=== PATIENT | male | born 1970 | race Caucasian/White ===

== ENCOUNTER → 2016-04-08 | Outpatient (CLI) | payer OTHER ==
[2016-04-08 16:18] LABS: Basophils # (A) 0.1 k/uL (0-0.2); Basophils % (A) 2 %; CHCM 35.3; Eosinophils # (A) 0.4 k/uL (0-0.7); Eosinophils % (A) 8 %; HCT 48.9 % (39.0-53.0); HDW 2.84; HGB 16.3 gm/dL (13.0-17.5); Luc # (Auto) 0.08; Luc % (Auto) 2; Lymphocytes # (A) 0.9 k/uL (1.0-4.8); Lymphocytes % (A) 20 %; MCH 30.4 pg (25.0-35.0); MCHC 33.3 g/dL (31.0-37.0); MCV 91.2 fL (80.0-100.0); Mean Platelet Volume 7.8; Monocytes # (A) 0.3 k/uL (0-1.0); Monocytes % (A) 6 %; Neutrophils # (A) 2.9 k/uL (1.3-7.7); Neutrophils % (A) 63 %; RBC 5.36 m/uL (4.30-5.90); RDW 13.8 % (11.5-15.5); WBC 4.6 k/uL (3.8-10.6); WBC (Perox) 4.68
[2016-04-08 16:39] LABS: ALT 59 U/L (21-72); AST 46 U/L (17-59); Alkaline Phosphatase 83 U/L (38-126); Anion Gap 10 mmol/L; Blood Urea Nitrogen 8 mg/dL (9-20); Calcium 9.3 mg/dL (8.4-10.2); Carbon Dioxide 23 mmol/L (22-30); Chloride 107 mmol/L (98-107); Glucose 108 mg/dL (74-99); Non-African American GFR(MDRD) >60 (>60 ml/min/1.73 sqM); Potassium 4.8 mmol/L (3.5-5.1); Sodium 140 mmol/L (137-145); Total Bilirubin 0.7 mg/dL (0.2-1.3); Total Protein 7.4 g/dL (6.3-8.2)
--- NOTE | 2016-04-08 21:46 | MR ---
EXAMINATION TYPE: MR brain/cspine wo/w DATE OF EXAM: 04/08/2016 6:03 PM COMPARISON: MRI cervical spine February 22, 2015. MRI brain September 08, 2013. HISTORY: Checking for MS progression, rt side numbness, back pain, prior neck surgery 2012, removal o f brain tumor 1991 TECHNIQUE: Multiplanar, multisequence images of the cervical spine, brain, and brainstem are all performed witho ut and with IV contrast, utilizing 20 mL intravenous MultiHance gadolinium contrast is administered i ntravenously. Demyelinating disease protocol with additional Sagittal Flair sequence performed of th e brain and brainstem and PD sagittal sequence of cervical spine acquired. FINDINGS: BRAIN: T2 Lesions Present : Yes Approximate Number of Lesions: Difficult to accurately count due to background changes related to domingo or surgery and old infarcts. Some scattered small brainstem lesions remain present. Size of Reference Lesion(s): A vague area T2 hyperintensity along right temporal occipital horn on ax ial images 15 through 17 is noted. Enhancing Lesion(s) Present: No Change from Prior: Stable Diffusion weighted images demonstrate no evidence of a recent infarct or other diffusion abnormality. There is no worrisome extra-axial fluid collection. There is persistent mild diffuse hydrocephalus with ventricular size grossly unchanged from prior MRI. No significant sulcal effacement is seen. Per iventricular T2 hyperintensities along the occipital horns bilaterally are redemonstrated with additi onal area of old infarct more posterior right occipital lobe again seen. There is area of hyperintens ity right frontal lobe likely related to prior shunt catheter course. There is encephalomalacia invol ving the cerebellum redemonstrated slightly more prominent on the left side unchanged from prior exam . Symmetric areas of CSF prominence along the medial temporal lobes is unchanged from prior studies n ear axial image 10. Midline structures demonstrate normal morphology. The craniocervical junction appears within normal limits. Post contrast images demonstrate no new areas of abnormal enhancement. Area of enhancement i n inferior fourth ventricle is felt to reflect prominent vessel seen best on axial image 6 posterior to medulla and is stable. The dural venous sinuses appear patent. A mucous retention cyst or polyp in the anterior right maxillary sinus is redemonstrated. Minimal mucosal thickening in both maxillary s inus is redemonstrated. Remainder of the paranasal sinuses are clear. The globes are intact bilateral ly. IMPRESSION: Postsurgical change from midline occipital craniectomy with cerebellar encephalomalacia r edemonstrated. There is background mild diffuse hydrocephalus with scattered areas of encephalomalaci a redemonstrated. No significant change from prior MRI is seen. Some additional scattered nonspecific white matter changes are present. No new enhancing mass is noted. C-SPINE: FINDINGS: Sagittal images of the cervical spine show the craniocervical junction to remain within nor mal limits. The cervical and upper thoracic spinal cord redemonstrates some vague T2 hyperintense si gnal with suggestion of mild atrophy C5-C6 level at level of prior surgery suspicious for myelomalaci a without significant change. Vertebral alignment is anatomic. Artifact from anterior fusion hardwar e C5-C6 level is redemonstrated. The vertebral body and intravertebral disk heights are normal above and below level of surgery. Small posterior disc herniations are felt present C3-C4, C4-C5, and C6-C 7 levels on sagittal images unchanged from prior study. The bone marrow signal intensity is within no rmal limits above and below level of surgery. No suspicious postcontrast enhancement is present. Axial images at the C2-C3 level redemonstrate possible subtle anterolisthesis felt stable otherwise a re unremarkable. Axial images at C3-C4 level show broad-based posterior disc protrusion effacing anterior thecal sac w ith uncovertebral facet degenerative changes bilaterally causing mild to moderate right greater than left neural foraminal narrowing. No significant change from prior study is seen. Axial images at C4-C5 level show some uncovertebral facet degenerative changes bilaterally. There is broad-based central disc protrusion mildly effacing anterior thecal sac. There is moderate bilateral neural foraminal narrowing at this level redemonstrated. No significant change from prior study is se en. Axial images at C5-C6 level show artifact from surgical hardware. Increased signal right spinal cord remains present and is stable. Spinal canal is preserved. Uncovertebral facet degenerative changes ca uses mild bilateral neural foraminal narrowing, left slightly more pronounced than right, no signific ant change from prior study is seen. Axial images at C6-C7 level show broad based left paracentral disc protrusion effacing anterior theca l sac with mild bilateral neural foraminal narrowing. No significant change from prior study is ident ified. Axial images at C7-T1 level are felt within normal limits. IMPRESSION: Postsurgical changes C5-C6 level with small area of abnormal spinal cord signal favoring myelomalacia redemonstrated. Additional multilevel degenerative changes are seen as detailed above wi thout significant change from prior MRI. No new or enhancing spinal cord lesions are identified.
--- NOTE | 2016-04-09 08:10 | US ---
EXAMINATION TYPE: US carotid duplex BILAT DATE OF EXAM: 04/08/2016 7:26 PM COMPARISON: Previous carotid Doppler 08 September 2013 CLINICAL HISTORY: Right facial numbness x 1 month ago, MS, high BP. EXAM MEASUREMENTS: RIGHT: Peak Systolic Velocity (PSV) cm/sec ----- Right CCA: 79.0 ----- Right ICA: 50.5 ----- Right ECA: 47.6 ICA/CCA ratio: 0.6 RIGHT: End Diastole cm/sec ----- Right CCA: 24.1 ----- Right ICA: 28.4 ----- Right ECA: 9.2 LEFT: Peak Systolic Velocity (PSV) cm/sec ----- Left CCA: 82.7 ----- Left ICA: 64.5 ----- Left ECA: 71.3 ICA/CCA ratio: 0.8 LEFT: End Diastole cm/sec ----- Left CCA: 32.2 ----- Left ICA: 32.2 ----- Left ECA: 17.5 VERTEBRALS (direction of flow): Right Vertebral: Antegrade Left Vertebral: Antegrade Bilateral wall thickening. No significant stenosis or high velocities seen. No plaque. IMPRESSION: No hemodynamic significant stenosis of the proximal internal carotid arteries bilaterall y by Doppler criteria, and indirect measurement of carotid stenosis
== END | disposition home or self-care (01) ==
LOC: RADMRIMAIN 15:40
PROVIDERS: ATTEND Psychiatry & Neurology Neurology
DX: G35 Multiple sclerosis (principal); G91.9 Hydrocephalus, unspecified; G93.89 Other specified disorders of brain; M47.812 Spondylosis without myelopathy or radiculopathy, cervical region; R20.8 Other disturbances of skin sensation; Z98.890 Other specified postprocedural states
CPT/HCPCS: 80053; 85025; 93880; 70553; 72156; A9577

== ENCOUNTER → 2017-01-05 | Outpatient (CLI) | payer MEDICARE, OTHER ==
--- NOTE | 2017-01-05 16:42 | CONS ---
CONSULTATION This is a consultation note for sleep apnea. Campbell is 46, diagnosed having sleep apnea a few years back through a sleep center in [place], [place] under the care of Dr. Sorensen who is associated also with [facility]. He was diagnosed having moderate to severe JASON with an AHI of 26, and currently is on CPAP pressure of 9 cm of water. He has not been to his sleep doctor and wants to establish himself at our Sleep Center and try to get his CPAP supplies renewed. He used to work with [employer]. He is currently disabled due to multiple sclerosis and he also has hypertension and chronic anxiety disorder. He claims that he has been wearing a CPAP every night without any interruption and the patient denies snoring while on CPAP therapy and he denies any apneic episodes or any episodes of waking up with choking or gasping for air. He goes to bed around 10:00 pm, wakes up 7:00 am in the morning and he claims that his treatment is successful and is using a nose mask. Based on description I think he is using a Mirage FX nose mask. I did not see his machine nor did I see any of the CPAP supplies with him today. He claims that all of his equipment is at home. His current [place] score is at 2. No recent weight gain over the past year. No nocturnal heartburn. No palpitations. No chest pain. No shortness of breath. No nocturnal restlessness in lower extremities. PAST MEDICAL HISTORY: Obstructive sleep apnea, multiple sclerosis, hypertension and anxiety. PAST SURGICAL HISTORY: Includes resection of a brain tumor with placement of ADVERTISING ASSISTANT shunt. Two hernia repairs. Two knee surgeries and cervical neck fusion. DRUG ALLERGIES: SULFA AND CODEINE. OUTPATIENT MEDICATION LIST: Includes BuSpar, Cozaar, doxepin, Norvasc, Trintellix, SOCIAL HISTORY: The patient is a nonsmoker. No history of alcohol. No history of IV drugs. 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 Currently disabled. FAMILY HISTORY: Positive for CAD in several family members. Negative for JASON. REVIEW OF SYSTEMS: 12-point review of system was done. CONSTITUTIONAL: Fatigue, tiredness and some degree of sleepiness. HEENT: Negative for runny eyes or nose or postnasal drainage. CARDIOVASCULAR: Negative for angina or palpitations. PULMONARY: Negative for any cough, sputum production, or chest tightness or wheezing. GI: Negative for nausea, vomiting, abdominal pain, or GI bleed. NEURO: Positive for multiple sclerosis and difficult mobility and gait. MUSCULOSKELETAL: Chronic pain related to arthritic pain in his knees and neck and back. SKIN: Negative for wounds or ulcers. PSYCH: Positive for chronic anxiety maintained on BuSpar. : Negative for dysuria, frequency, urgency. PHYSICAL EXAMINATION: BP is 133/88. Pulse 82, respirations 18, temperature 98.2, saturation 97% on room air. Weight is 331.6. Height is 6 foot 4. [place] score is a 2. BMI is 40.4, neck sizes 18- 3/4. GENERAL APPEARANCE: Calm, comfortable, in no acute distress. HEENT: Chronic posterior pharynx. No goiter or neck masses. Mallampati class IV. LUNGS: Clear to auscultation. HEART: Sounds are regular. Normal S1, S2. No S3, S4. No murmurs. ABDOMEN: Soft, nontender. No organomegaly. EXTREMITIES: No edema. No cyanosis or clubbing. SKIN: Negative for wounds or ulcers. NEURO: Negative for any change in mental status. He has a chronic difficulty with mobility and gait. Normal speech for now. IMPRESSION: 1. Obstructive sleep apnea. No available documentation on his previous disease status. He claims that he has moderately severe disease with an AHI of 26, with a CPAP pressure of 9 cm of water and is requesting supplies. 2. Multiple sclerosis. 3. Hypertension. 4. Anxiety. PLAN: 1. Will obtain a CT information to his sleep doctor and get all the information and documentation that established the sleep apnea and information on the treatment that was offered. 2. Encourage weight loss. 3. Gave the patient a dream wear nose mask and samples will be given to him today and he will be using it at home until he gets mailed information and after that I will arrange his supplies to be given through a local DME. 4. Optimize sleep hygiene measures. 5. We will continue to follow. MMODL / IJN: [id number] /
== END ==
LOC: SLEEP 13:18
PROVIDERS: ATTEND Internal Medicine Critical Care Medicine
DX: G47.33 Obstructive sleep apnea (adult) (pediatric) (principal); I10 Essential (primary) hypertension; G35 Multiple sclerosis; F41.9 Anxiety disorder, unspecified; Z79.899 Other long term (current) drug therapy; Z88.2 Allergy status to sulfonamides; Z88.5 Allergy status to narcotic agent
CPT/HCPCS: 99211

== ENCOUNTER → 2017-03-30 | Outpatient (CLI) | payer MEDICARE ==
--- NOTE | 2017-03-30 14:04 | PN ---
PROGRESS NOTE 47-year-old male patient diagnosed having obstructive sleep apnea through a sleep center out of [place], [place]. The patient was seen by Dr. Sheehan, a neurologist/Sleep Center specialist. The patient apparently was diagnosed having moderate to severe obstructive sleep apnea with an AHI of 26, and the patient was given CPAP with a pressure of 9 cm of water. During his last visit, I do not have documentation on this patient. I was unable to refill his equipment and supplies. Based on that, I gave him a sample of dream wear nose mask. On today's evaluation he is coming back and he is telling me that the dream wear has worked very well for him. He likes the mask and wants to continue getting the same type of mask interface. He has obvious leaks through his tubing system. He is compliant with CPAP machine and he has been using it more than 8 hours per night. He is waking up refreshed and alert during the day. No recent weight gain or weight loss. No sleeping while driving his car. I am still unable to get his original polysomnogram however I came to the understand the patient has been working with sleep [facility] [employer] regarding his equipment refills. PHYSICAL EXAMINATION: BP is 152/89, pulse 92, respirations 16, temperature 96.9. Saturation 97% on room air. Weight is 334, height is 6 feet 4 inches. BMI is 41.1. General appearance: Calm and comfortable, obese, head is atraumatic, normocephalic. Neck is short, crowding of posterior pharynx. There is no goiter or neck mass. Mallampati class 4. Lungs clear to auscultation. Heart sounds regular rate and rhythm. Normal S1, S2. No S3, S4. No murmurs. Abdomen is soft, nontender. No organomegaly. EXTREMITIES: No edema. No cyanosis or clubbing. Skin no ulcerations or lesions. Neuro is alert and oriented x3. There is no focal neurological deficit. IMPRESSION: 1. Obstructive sleep apnea. Moderate to severe. AHI of 26, with successful CPAP therapy at the pressure of 9. 2. Multiple sclerosis. 3. Hypertension. 4. Anxiety. PLAN: 1. Continue CPAP therapy at same level of pressure. 2. Encourage weight loss. 3. Keep the patient on a Dream Wear small size nose mask. 4. I provided the patient a sample of tubing. 5. I refilled all of his supplies to go to [facility]. 6. Will try to get the records from [facility]. 7. See him back in a year earlier if needed. 8. His CPAP machine is an older generation Respironics and this need to be upgraded to a later stage. DAVE / SIDDHARTHAN: [id number] /
== END | disposition home or self-care (01) ==
LOC: SLEEP 13:01
PROVIDERS: ATTEND Internal Medicine Critical Care Medicine
DX: G47.33 Obstructive sleep apnea (adult) (pediatric) (principal); G35 Multiple sclerosis; I10 Essential (primary) hypertension; F41.9 Anxiety disorder, unspecified; Z99.89 Dependence on other enabling machines and devices

== ENCOUNTER → 2017-12-07 | Outpatient (CLI) | payer MEDICARE, OTHER ==
[2017-12-07 10:40] LABS: Basophils % (A) 1 %; Eosinophils # (A) 0.2 k/uL (0-0.7); Eosinophils % (A) 4 %; HCT 46.7 % (39.0-53.0); HGB 16.1 gm/dL (13.0-17.5); Lymphocytes # (A) 1.3 k/uL (1.0-4.8); Lymphocytes % (A) 22 %; MCH 32.2 pg (25.0-35.0); MCHC 34.4 g/dL (31.0-37.0); MCV 93.8 fL (80.0-100.0); Mean Platelet Volume 7.1; Monocytes # (A) 0.3 k/uL (0-1.0); Monocytes % (A) 6 %; Neutrophils # (A) 3.9 k/uL (1.3-7.7); Neutrophils % (A) 67 %; Platelet Count 231 k/uL (150-450); RBC 4.98 m/uL (4.30-5.90); RDW 13.7 % (11.5-15.5); WBC 5.8 k/uL (3.8-10.6)
[2017-12-07 11:22] LABS: ALT 46 U/L (21-72); AST 36 U/L (17-59); Albumin 3.9 g/dL (3.5-5.0); Alkaline Phosphatase 107 U/L (38-126); Anion Gap 9 mmol/L; Blood Urea Nitrogen 11 mg/dL (9-20); Calcium 9.6 mg/dL (8.4-10.2); Carbon Dioxide 30 mmol/L (22-30); Chloride 104 mmol/L (98-107); Glucose 107 mg/dL (74-99); Potassium 4.6 mmol/L (3.5-5.1); Sodium 143 mmol/L (137-145); Total Bilirubin 0.8 mg/dL (0.2-1.3); Total Protein 6.9 g/dL (6.3-8.2)
== END | disposition home or self-care (01) ==
LOC: LABWHC1 10:01
PROVIDERS: ATTEND Physician Assistant
DX: G35 Multiple sclerosis (principal)
CPT/HCPCS: 36415; 80053; 82306; 82607; 85025

== ENCOUNTER → 2018-05-31 | Outpatient (CLI) | payer MEDICARE, OTHER ==
--- NOTE | 2018-05-31 19:49 | PN ---
PROGRESS NOTE Suman is a 48-year-old male patient who is being seen in followup regarding his obstructive sleep apnea. The patient was last seen in my office approximately a year ago. The patient has JASON which is moderate to severe with an AHI of 26, and he is on a CPAP pressure of 9 cm of water. He has an older-generation unit which needs to be updated after 5 years. Based on his compliance data, the patient has been averaging around 9 hours and 36 minutes on his CPAP use, and his CPAP use for more than 4 hours approaches 100%. His weight is stable at 328, with probably a 3-pound weight loss. The patient is going to bed between 9 and 10 p.m., waking up at 7 a.m. in the morning. He is still feeling tired and sleepy during the day. He is wondering whether the new baclofen pump that was inserted for back pain is affecting his sleepiness. This is one possibility, knowing that baclofen may cause muscle relaxation systemically and may cause also some increased or worsening of sleep apnea control. He is not sure whether he is snoring while on the CPAP therapy for the time being. His other comorbidities include depression, for which he is on doxepin, and he is on BuSpar for chronic anxiety. His blood pressure is under good control for now. His current [place] Score is 4. REVIEW OF SYSTEMS: The patient has chronic back pain. He has a pain pump. He has a history of MS, under the care of Dr. Castillo. His depression is inactive for now and he has been treated for chronic anxiety and depression. No recent weight gain or weight loss. No shortness of breath, chest pain or palpitations. No aspiration. No nausea, vomiting, diarrhea. No heartburn. No sleepwalking or sleeptalking. No restlessness in the lower extremities. No significant muscle cramping. No nocturia. PHYSICAL EXAMINATION: BP is 140/91, pulse 86, respirations 16, temperature 97.9, saturation 96% on room air. Height is 6 feet 5 inches. Weight is 328, BMI 39.0. [place] score is 4. GENERAL APPEARANCE: Calm, comfortable. Head is atraumatic, normocephalic. NECK: Supple. No JVD. No goiter. No neck masses. Mallampati class IV. LUNGS: Clear to auscultation. Heart sounds are regular rate and rhythm. Normal S1, S2. No S3, S4. No murmurs. ABDOMEN: Soft, nontender. No organomegaly. EXTREMITIES: No edema. No cyanosis or clubbing. Neurologically he is alert and oriented x3. There are no focal neurological deficits. PSYCHIATRIC: Positive for chronic anxiety and depression. IMPRESSION: 1. Obstructive sleep apnea, currently on CPAP pressure of 9 cm of water. Baseline AHI of 26. 2. Hypersomnia despite being compliant with CPAP therapy. Rule out worsening of obstructive sleep apnea. Rule out suboptimal CPAP pressures. 3. Multiple sclerosis. 4. Chronic back pain, currently on a baclofen pump. 5. Chronic anxiety. 6. Chronic depression. 7. Hypertension. PLAN: 1. Check the CPAP unit. 2. Patient is compliant. 3. I would like to get the patient another CPAP titration. I would wait until he is 5 years out with his current machine and will update his machine and pressure setting. It is likely that the patient's JASON has gotten worse and/or the severity of obstructive sleep apnea has increased with the patient being on a baclofen pump, with increased muscle relaxation. He was asked to continue the current CPAP pressure with the same mask interface. Will see me back in 6 months' time for followup, and at that time it will be reasonable to undergo another CPAP titration. MMJORGEL / IJN: [id number] /
== END | disposition home or self-care (01) ==
LOC: SLEEP 14:35
PROVIDERS: ATTEND Internal Medicine Critical Care Medicine
DX: G47.33 Obstructive sleep apnea (adult) (pediatric) (principal); G35 Multiple sclerosis; M54.9 Dorsalgia, unspecified; G89.29 Other chronic pain; F41.9 Anxiety disorder, unspecified; F32.9 Major depressive disorder, single episode, unspecified; I10 Essential (primary) hypertension; Z99.89 Dependence on other enabling machines and devices; Z97.8 Presence of other specified devices

== ENCOUNTER → 2019-02-07 | Outpatient (CLI) | payer MEDICARE, OTHER ==
--- NOTE | 2019-02-07 17:08 | PN ---
PROGRESS NOTE This is a 49-year-old male patient coming in to see me in followup. The patient was seen in followup back in May of 2018. At that time he was utilizing an older- generation Respironics unit for moderate to severe obstructive sleep apnea with an AHI of 26. I offered him a DreamWear [id number] medium-sized mask. He was still interested in updating his CPAP machine. The machine is not working appropriately, according to him, and the humidification chamber has not been giving him enough relief, as the patient is waking up very dry in his mouth. His current CPAP pressure is at 9 cm of water. He is averaging more than 7 hours of CPAP use per night. As mentioned earlier, he is trying to lose weight. He has lost around 5 to 6 pounds since his last evaluation. He has a baclofen pump for chronic back pain and muscle relaxation. He has an [place] score of 5. He is interested in obtaining another CPAP titration in hopes of getting a new CPAP unit. REVIEW OF SYSTEMS: Fourteen-point review of systems was done. Positive findings were all mentioned above in the history of present illness. As mentioned earlier, the patient has a history of MS. He has chronic muscle spasms and he currently has a baclofen pump in place. He is using a DreamWear [id number] mask. He is waking up with a dry mouth. He has been tired and sleepy during the day. No nausea or vomiting, diarrhea or abdominal pain. No chest pain overnight. No heartburn or palpitations. PHYSICAL EXAMINATION: VITAL SIGNS: His BP is 131/96, pulse 91, respirations 16, temperature 97.4, saturation 96% on room air. Height is 6 feet 2 inches, weight 221 and [place] score is 5 with a BMI of 40.1. GENERAL APPEARANCE: Calm, comfortable. HEAD: Atraumatic, normocephalic. NECK: Supple. No JVD. No goiter or neck masses. Mallampati class IV. LUNGS: Clear to auscultation. HEART: Heart sounds are regular rate and rhythm. Normal S1, S2. No S3, S4. No murmurs. ABDOMEN: Soft, nontender. No organomegaly. EXTREMITIES: No edema. No cyanosis or clubbing. NEUROLOGIC: Alert and oriented x3. No focal neurological deficits. He has MS, yet the patient has no focal neurological deficit. PSYCHIATRIC: Negative for anxiety or depression. SKIN: Negative for any wounds or ulceration. IMPRESSION: 1. Symptomatic obstructive sleep apnea. The patient has an AHI of 26, currently being treated with a CPAP pressure of 9 cm of water. The patient is still symptomatic, still having tiredness and sleepiness, and he is very interested in updating his CPAP unit. 2. Chronic hypersomnia. Rule out suboptimally treated sleep apnea. Rule out malfunctioning CPAP unit. 3. Multiple sclerosis. 4. Chronic back pain, currently on a baclofen pump. 5. Chronic anxiety/depression. 6. Hypertension. PLAN: 1. Encourage further weight loss. 2. Undergo a CPAP titration, following which the patient will be obtaining a new CPAP unit with a DreamWear nose mask. He will be monitored regarding his compliance and further adjustments will be done accordingly. 3. Implement good sleep hygiene measures. 4. Follow up with Neurology regarding treatment of MS. 5. Continue baclofen pump. 6. Will continue to follow. MMODL / IJN: [id number] /
== END | disposition home or self-care (01) ==
LOC: SLEEP 14:13
PROVIDERS: ATTEND Internal Medicine Critical Care Medicine
DX: G47.33 Obstructive sleep apnea (adult) (pediatric) (principal); G47.19 Other hypersomnia; G35 Multiple sclerosis; M54.9 Dorsalgia, unspecified; G89.29 Other chronic pain; I10 Essential (primary) hypertension; Z97.8 Presence of other specified devices; Z79.899 Other long term (current) drug therapy

== ENCOUNTER → 2019-04-04 | Outpatient (CLI) | payer MEDICARE, OTHER ==
[2019-04-04 10:07] LABS: Basophils % (A) 0 %; Eosinophils # (A) 0.1 k/uL (0-0.7); Eosinophils % (A) 1 %; HCT 43.1 % (39.0-53.0); HGB 14.6 gm/dL (13.0-17.5); Lymphocytes # (A) 1.2 k/uL (1.0-4.8); Lymphocytes % (A) 13 %; MCH 32.4 pg (25.0-35.0); MCHC 33.8 g/dL (31.0-37.0); Mean Platelet Volume 7.7; Monocytes # (A) 0.4 k/uL (0-1.0); Monocytes % (A) 4 %; Neutrophils # (A) 7.4 k/uL (1.3-7.7); Neutrophils % (A) 80 %; Platelet Count 355 k/uL (150-450); RBC 4.49 m/uL (4.30-5.90); RDW 12.8 % (11.5-15.5); WBC 9.3 k/uL (3.8-10.6)
[2019-04-04 16:15] LABS: African American GFR (CKD) 92.2 (60.0-200.0); Albumin 4.2 g/dL (3.80-4.90); Albumin/Globulin Ratio 2.1 (1.60-3.17); Anion Gap 10.1 mmol/L (4.00-12.00); BUN/Creat Ratio 12.73 Ratio (12.00-20.00); Carbon Dioxide 28.9 mmol/L (21.6-31.8); Chol/HDL Ratio 2.69; Non-African American GFR(CKD) 79.5 (60.0-200.0); Potassium 4.2 mmol/L (3.5-5.5); Total Bilirubin 0.6 mg/dL (0.3-1.2); Total Protein 6.2 g/dL (6.2-8.2)
[2019-04-04 16:26] LABS: HIV 1 AB Non-Reactive (Non-Reactive); HIV 2 AB Non-Reactive (Non-Reactive); HIV AB P24 Non-Reactive (Non-Reactive); HIV P24 AG Non-Reactive (Non-Reactive); Hemoglobin A1C 5.9 % (4.0-6.0)
[2019-04-04 16:29] LABS: T4, Free (Free Thyroxine) 1.6 ng/dL (0.80-1.80)
[2019-04-04 18:05] LABS: Hepatitis B Core IgM Non-Reactive (Non-Reactive); Hepatitis B Surface AB- Quant 3.5 mIU/mL; Hepatitis B Surface Antibody Non-Reactive (Non-Reactive); Hepatitis B Surface Antigen Non-Reactive (Non-Reactive)
[2019-04-06 12:41] LABS: Vit B1(Thiamine) 64 ug/L (38-122)
[2019-04-07 02:13] LABS: Varicella IgM Antibody 0.23 INDEX (<=0.90)
[2019-04-12 12:30] LABS: Nicotinamide 32 ng/mL; Nicotinic Acid None Detected; Nicotinuric Acid None Detected
== END | disposition home or self-care (01) ==
LOC: LABWHC1 08:49
PROVIDERS: ATTEND Psychiatry & Neurology Pain Medicine
DX: I10 Essential (primary) hypertension (principal); E78.2 Mixed hyperlipidemia; G35 Multiple sclerosis; R53.83 Other fatigue
CPT/HCPCS: 36415; 80053; 80061; 82306; 82607; 82746; 83036; 84207; 84425; 84439; 84443; 84481; 84591; 85025; 86480; 86704; 86705; 86706; 86787; 87340; 87390

== ENCOUNTER → 2019-06-06 | Outpatient (CLI) | payer MEDICARE, OTHER ==
--- NOTE | 2019-06-06 18:01 | PN ---
PROGRESS NOTE This patient is coming in for a compliance check regarding his obstructive sleep apnea. The patient was given a new CPAP machine. He is known to have moderately severe disease with an AHI of 12 and currently has a ResMed AutoSet unit which is set at the pressure of 12 cm of water. He is also using an [id number] DreamWear nose mask. On today's compliance check, the patient reports that the machine is very effective and his sleep quality is improved. He is waking up much more refreshed and alert during the day. Based on the compliance data, he has been utilizing his machine every night, and his use for more than 4 hours is 100% with an average of 8.4 hours per night, leak of 13 L/minute, and his AHI is down to 0.7. His weight is stable. No hypersomnia or sleepiness during the day. He is well treated. No complaints at all. REVIEW OF SYSTEMS: Fourteen-point review of systems was done. Positive findings were all mentioned above in the history of present illness. No facial irritation. No facial pain. No skin irritation. No aerophagia. No nausea or vomiting. No weakness. No hypersomnia or sleepiness during the day. No chest pain, shortness of breath or angina. No palpitations. PHYSICAL EXAMINATION: VITAL SIGNS: BP is 145/84, pulse 100, respirations 16, temperature 98.4. Weight is 317. Saturation 98% on room air. GENERAL APPEARANCE: Calm, comfortable. HEAD: Atraumatic, normocephalic. NECK: Supple. No JVD. No goiter or neck masses. Mallampati class IV. LUNGS: Clear to auscultation. HEART: Heart sounds are regular rate and rhythm. Normal S1, S2. No S3, S4. No murmurs. ABDOMEN: Soft, nontender. No organomegaly. EXTREMITIES: No edema. No cyanosis or clubbing. NEUROLOGIC: Awake and alert. There is no focal neurological deficit. PSYCHIATRIC: Negative for anxiety or depression. IMPRESSION: Moderately severe obstructive sleep apnea with an apnea/hypopnea index of 26, currently on CPAP pressure of 12 cm of water. The patient has demonstrated excellent clinical response and compliancy with the new CPAP machine, which is a Res Met AutoSet unit. PLAN: 1. Keep CPAP pressure at 12. 2. DreamWear [id number] nasal mask. 3. Compliance data was checked. 4. Clinical response is excellent. 5. Encourage weight loss. 6. Implement good sleep hygiene measures. 7. See me back in a year's time in followup, earlier if needed. MMODL / IJN: [id number] /
== END | disposition home or self-care (01) ==
LOC: SLEEP 15:24
PROVIDERS: ATTEND Internal Medicine Critical Care Medicine
DX: G47.33 Obstructive sleep apnea (adult) (pediatric) (principal); Z99.89 Dependence on other enabling machines and devices

== ENCOUNTER → 2019-09-29 | Outpatient (CLI) | payer MEDICARE, OTHER ==
--- NOTE | 2019-09-29 13:11 | XR ---
EXAMINATION TYPE: XR chest 2V DATE OF EXAM: 09/29/2019 COMPARISON: Prior chest 09/08/2013 HISTORY: Preoperative Clearance TECHNIQUE: Frontal and lateral views of the chest are obtained on 3 images. FINDINGS: There is no focal air space opacity, pleural effusion, or pneumothorax seen. The cardiac silhouette size is stable, borderline enlarged. The osseous structures are intact. IMPRESSION: No acute cardiopulmonary process. Borderline heart size.
[2019-09-29 13:33] LABS: Basophils % (A) 1 %; Eosinophils # (A) 0.1 k/uL (0-0.7); Eosinophils % (A) 2 %; HCT 40.7 % (39.0-53.0); HGB 13.6 gm/dL (13.0-17.5); Lymphocytes # (A) 0.5 k/uL (1.0-4.8); Lymphocytes % (A) 8 %; MCH 32.6 pg (25.0-35.0); MCHC 33.3 g/dL (31.0-37.0); MCV 97.9 fL (80.0-100.0); Mean Platelet Volume 7.7; Monocytes # (A) 0.4 k/uL (0-1.0); Monocytes % (A) 7 %; Neutrophils % (A) 81 %; Platelet Count 219 k/uL (150-450); RBC 4.16 m/uL (4.30-5.90); RDW 12.8 % (11.5-15.5); WBC 6.2 k/uL (3.8-10.6)
[2019-09-29 13:44] LABS: African American GFR (CKD) >90 (>60 ml/min/1.73 sqM); Anion Gap 9 mmol/L; Blood Urea Nitrogen 18 mg/dL (9-20); Calcium 9.5 mg/dL (8.4-10.2); Carbon Dioxide 27 mmol/L (22-30); Chloride 100 mmol/L (98-107); Glucose 102 mg/dL (74-99); Non-African American GFR(CKD) >90 (>60 ml/min/1.73 sqM); Potassium 3.7 mmol/L (3.5-5.1); Sodium 136 mmol/L (137-145)
[2019-09-29 13:52] LABS: INR 0.9 (<1.2); Prothrombin Time 9.4 sec (9.0-12.0)
[2019-09-29 14:03] LABS: Partial Thromboplastin Time 20.1 sec (22.0-30.0)
== END | disposition home or self-care (01) ==
LOC: LABPAT 11:18
PROVIDERS: ATTEND Orthopaedic Surgery Orthopaedic Surgery of the Spine
DX: Z01.818 Encounter for other preprocedural examination (principal); M48.00 Spinal stenosis, site unspecified; M54.10 Radiculopathy, site unspecified; Z79.01 Long term (current) use of anticoagulants
CPT/HCPCS: 36415; 71046; 80048; 85025; 85610; 85730; 93005

== ENCOUNTER 2019-10-02 11:38 | Inpatient (IN) | payer MEDICARE, OTHER ==
[2019-09-29 14:39] VITALS: BMI 37.5
[2019-09-29 16:49] LABS: Appearance,Urine Clear (Clear); Bacteria,Urine Rare /hpf; Bilirubin,Urine Negative (Negative); Blood,Urine Negative (Negative); Color,Urine Yellow; Glucose,Urine (UA) Negative (Negative); Hyaline Casts,Urine 1 /lpf (0-2); Ketones,Urine Negative (Negative); Leukocyte Esterase,Urine Moderate (Negative); Mucus,Urine Rare /hpf; Nitrite,Urine Negative (Negative); PH, Urine 5.5 (5.0-8.0); Protein,Urine Negative (Negative); RBC,Urine 1 /hpf (0-5); Squamous Epithelial Cell,Urine 10 /hpf (0-4); Urobilinogen,Urine <2.0 mg/dL (<2.0); WBC,Urine 18 /hpf (0-5)
[~2019-10-02 11:38] MED LIST: CLINDAMYCIN 900 MG in DEXTROSE 5% IN WATER 50 ML IVPB ONE; DEXAMETHASONE SOD PHOSPHATE 10 MG/ML 1 ML VIAL IV ONE; HYDROmorphone 0.5 MG/0.5 ML SYRINGE IVP PRN; LIDOCAINE 1% (10MG/ML) FOR IV START INTRADERMA PRN; MIDAZOLAM 2 MG/2 ML VIAL IV PRN; SODIUM CHLORIDE 0.9% IRRIGATIO 1,000 ML IRRIGATION ONE
[2019-10-02] MEDS: LACTATED RINGERS 1,000 ML IV SCH ×3 (12:06→20:29)
[2019-10-02] MEDS ORDERED: HYDROCORTISONE SUCCINATE 100 MG/2 ML VIAL ONE (12:22)
[2019-10-02] MEDS ORDERED: LIDOCAINE 1% INJ 10MG/ML (20 ML MDV) ONE (12:22)
[2019-10-02] MEDS ORDERED: PROPOFOL 10 MG/ML 20 ML VIAL IV ONE (12:22)
[2019-10-02] MEDS ORDERED: DEXAMETHASONE SOD PHOSPHATE 10 MG/ML 1 ML VIAL ONE (12:22)
[2019-10-02] MEDS ORDERED: PHENYLEPHRINE-0.9% NACL SYG 1 MG/10 ML SYRINGE ONE (12:22)
[2019-10-02] MEDS ORDERED: fentaNYL (PF) 50 MCG/ML 2 ML AMP ONE (12:22)
[2019-10-02] MEDS ORDERED: MIDAZOLAM 2 MG/2 ML VIAL ONE (12:22)
[2019-10-02] MEDS ORDERED: SUCCINYLCHOLINE CHLORIDE VIAL 200 MG/10 ML VIAL IV ONE (12:22)
[2019-10-02] MEDS ORDERED: ePHEDrine SULFATE/0.9% NACL/PF 50 MG/5 ML SYRINGE IV ONE (12:22)
[2019-10-02] MEDS ORDERED: LIDOCAINE 0.5%-EPI 1:200,000 50 ML VIAL SQ ONE (13:03)
[2019-10-02] MEDS ORDERED: GELATIN SPONGE,ABSORB (LARGE) 1 EACH SPONGE MISCELLANE ONE (13:13)
[2019-10-02] MEDS ORDERED: THROMBIN (BOVINE) 5,000 UNIT VIAL MISCELLANE ONE (13:13)
[2019-10-02] MEDS ORDERED: LACTATED RINGERS 1,000 ML IV ONE (13:50)
[2019-10-02] MEDS ORDERED: HYDROcodone/APAP 5-325MG 1 EACH TAB PO PRN (15:11)
[2019-10-02] MEDS ORDERED: bisacodyL 10 MG SUPP RECTAL PRN (15:11)
[2019-10-02] MEDS ORDERED: BENZOCAINE/MENTHOL LOZENG 1 EACH LOZENGE MUCOUS MEM PRN (15:11)
[2019-10-02] MEDS ORDERED: HYDROmorphone 1 MG/ML 1 ML SYRINGE IVP PRN (15:11)
[2019-10-02] MEDS ORDERED: MAGNESIUM HYDROXIDE 2,400 MG/10 ML CUP PO PRN (15:11)
[2019-10-02] MEDS ORDERED: HYDROmorphone 0.5 MG/0.5 ML SYRINGE IVP PRN (15:11)
[2019-10-02] MEDS ORDERED: ONDANSETRON 4 MG/2 ML VIAL IVP PRN (15:11)
[2019-10-02] MEDS ORDERED: [UNRECOGNIZED DRUG - OTHER] PO SCH (15:15)
--- NOTE | 2019-10-02 15:21 | P.OP ---
Date of Procedure: 10/02/19 Preoperative Diagnosis: Cervical stenosis C4 5 C6 7, herniated nucleus pulposis C4 5 C6 7, prior anterior cervical discectomy and fusion C5 6, upper extremity radiculopathy, adjacent level degeneration, degenerative disc disease Postoperative Diagnosis: Cervical stenosis C4 5 C6 7, herniated nucleus pulposis C4 5 C6 7, prior anterior cervical discectomy and fusion C5 6, upper extremity radiculopathy, adjacent level degeneration, degenerative disc disease Anesthesia: GETA Pathology: none sent Condition: stable Disposition: PACU Description of Procedure: BRIEF OPERATIVE NOTE Preoperative Diagnosis:Cervical stenosis C4 5 C6 7, herniated nucleus pulposis C4 5 C6 7, prior anterior cervical discectomy and fusion C5 6, upper extremity radiculopathy, adjacent level degeneration, degenerative disc disease Postoperative Diagnosis:Cervical stenosis C4 5 C6 7, herniated nucleus pulposis C4 5 C6 7, prior anterior cervical discectomy and fusion C5 6, upper extremity radiculopathy, adjacent level degeneration, degenerative disc disease Procedure: Removal of anterior cervical plate, deep C56 Exploration of fusion C5 6 of finding solid fusion Anterior cervical decompression with discectomy and fusion C4 5 C6 7 Placement of interbody graft C4 5 C6 7 Application of anterior cervical plate C4 5 6 and 7 Surgeon: Dr. Esposito Industrial Order Clerk: Bernardo Martínez is present throughout the entire the case persistence during positioning, dissection, exposure, visualization, and all crucial elements of the case as well as closure. Anesthesia: General anesthesia per Dr. Lorenzana Estimated blood loss: Approximately 150 mL Complications: None apparent Components implanted: We removed a venture chronic anterior cervical plate with 4 screws. The plate and screws were examined and found to be in total. We placed a new [place] K2M anterior cervical plate with screws and Vikos interbody on her bone graft with 1 mL of DBX bone putty Disposition: To recovery room in good stable condition. OPERATIVE INDICATIONS The patient has had long-standing issues in their neck and upper extremities. He's been having worsening over the past year at his neck and his bilateral upper extremity is worse left than on the right. Approximately 8 years ago he was having issues at his neck is well with upper extremity radiculopathy. We'll see him at that point and after failing conservative treatment he underwent anterior cervical decompression with discectomy and fusion at C5 6. He did well with that procedure and was very happy with his result over the past several years. However over the past year so he's been having worsening and displaced evidence of adjacent level degeneration with stenosis at C4 5 and C6 7 with disc herniation. These findings correlate well with his upper extremity symptoms as well as neck pain. The patient has been through conservative treatment. He is not having any lasting benefit despite aggressive conservative care. We discussed various treatment options including surgery, and the patient wishes to proceed with surgery We discussed the risk, patient's alternatives and benefits of surgery including but not limited to, risk of bleeding risk of infection, risk of need for further surgery, risk of decreased, loss of motion, muscle function, malunion nonunion, hardware failure, nerve damage, paralysis, heart attack, and . OPERATIVE SUMMARY After discussing all the risks, patient alternatives and benefits at length, the patient elected to proceed with surgical intervention, signed informed consent, and presented for their procedure. The patient was seen and examined in the preoperative holding area and the surgical site was marked. The patient was given antibiotics and brought to the operating room. The patient was positioned on the operating room table in a supine position being careful to pad any bony prominences and pressure points. The patient was sedated and intubated by anesthesia in standard fashion. Once the airway and C- spine were stabilized the patient's arms were padded and tucked at her side, with her shoulders gently taped. The head was placed in a donut pad with the neck in good neutral alignment and position. We were careful to maintain the patient's cervical spine and good neutral alignment and position throughout. The patient was prepped and draped in a normal standard fashion. An appropriate timeout and keystone protocol performed. We were able to proceed with the surgery. The local wound area was infiltrated with local anesthetic. An incision was made transversely approximately 2-1/2 cm over the appropriate levels utilizing the prior incision at C6. Dissection was taken down subcutaneously to the level of the platysma which was split in line with its fibers. Dissection was taken with a carotid approach, with the trachea and esophagus medial and the carotid sheath laterally. We dissected down to the anterior surface of the vertebral bodies. I was able to palpate and find the anterior cervical plate at C5 6. There is significant bony growth over the margins of the plate particularly at C67. Intraoperative x-ray was taken which showed a marker at the appropriate level of C4 5 plate intact at C5 6. I then worked to remove the plate from C5 6. The bony overgrowth was taken down with comminution of curettes and a osteotome. The hardware was removed with the appropriate [employer] instrumentation. Some of the locking device did stick down but we're able to unlock device and remove the 4 screws in total. The area was checked and examined with his found to be good solid fusion across C5 6 with excellent bony formation. There is no evidence of any motion at C5 6. The wound was copiously irrigated and suctioned dry With the appropriate level positively confirmed, and the old plate removed, we were able to proceed with discectomy at the appropriate levels first at C45 and then at C6 7. All of the operative levels were exposed appropriately. The patient had all their twitches back, and there was no evidence of recurrent laryngeal issue. The wound was copiously irrigated and suctioned dry as had been done periodically throughout the case. At the appropriate level/levels, I established an annulotomy with an 11 blade scalpel. A discectomy was performed with a combination of pituitary rongeurs, curettes, a high-speed bur, and Kerrison rongeurs. The posterior longitudinal ligament was taken down as were any posterior osteophytes. No was made of significant disc protrusion with post erior osteophytes. This was remedied with the decompression discectomy and removal of the posterior longitudinal ligament This gave good central and bilateral foraminal decompression. There is no evidence of any dural tear or leak. The endplates were prepared with a high-speed bur. With the endplates in good parallel position, I was able to size for the appropriate size interbody graft. The wound was irrigated and suctioned dry the graft was prepared and malleted into position. It had good alignment and position with the anterior surface flush with the anterior surface of the vertebral bodies. This was done similarly the appropriate levels at C4 5 and at C6 7. With the grafts intact, I was able to measure and contour and appropriate sized plate. The plate was positioned at the midline over the appropriate levels from C4 to C7. Screw holes were established with a hand drill and drill guide. Screws were placed in good alignment and position with excellent bony purchase. They were seated under the locking device. The construct was checked and found to be stable. Intraoperative x-ray was taken which showed good alignment and position of the implants at the appropriate levels. There was no evidence of any dural tear or leak. Good hemostasis was maintained. The wound was copiously irrigated and suctioned dry as had been done periodically throughout the case. The platysma was closed with absorbable suture. The subcutaneous tissue was closed. The subcuticular tissue was closed with absorbable suture. The wound was cleaned and dried and dressed appropriately. A soft cervical collar was placed appropriately. The patient was woken up by anesthesia, extubated, transferred back gently to their hospital bed and brought to the recovery room in good stable condition. The patient will be admitted to the hospital for appropriate postoperative care, medical management and monitoring. We will continue to follow them closely about the postoperative course.
[2019-10-02] MEDS ORDERED: ceFAZolin 3 GM in SODIUM CHLORIDE 0.9% 100 ML IVPB SCH (16:00)
--- NOTE | 2019-10-02 17:01 | XR ---
EXAMINATION TYPE: XR cervical spine 1V DATE OF EXAM: 10/02/2019 TECHNIQUE: Lateral crosstable view of the cervical spine obtained HISTORY: NEEDLE PLACEMENT COMPARISON: None FINDINGS: The cervical spine is incompletely visualized from C1 through C5. Needle placement is seen with distal tip overlying the C4-5 anterior disc space. C5-6 anterior fixation hardware, with incompl ete visualization of the C6 vertebral body. Incompletely visualized endotracheal tube. The visualized cervical spine demonstrate satisfactory alignment with no evidence of dislocation. IMPRESSION: Needle placement with distal tip overlying the C4-5 anterior disc space.
[2019-10-02] MEDS: SODIUM CHLORIDE 0.9% 1,000 ML IV SCH (18:12)
[2019-10-02] MEDS: CLINDAMYCIN 900 MG in DEXTROSE 5% IN WATER 50 ML IVPB SCH ×2 (18:57)
--- NOTE | 2019-10-02 19:28 | XR ---
EXAMINATION TYPE: XR cervical spine 1V DATE OF EXAM: 10/02/2019 COMPARISON: Cervical spine x-ray earlier today HISTORY: Neck pain. TECHNIQUE: Crosstable lateral view of cervical spine obtained intraoperatively. FINDINGS: New Anterior fusion plate and artificial disc material at C4-C5 level with likely removal o f the C5-C6 fixating plate though this level is not completely imaged. IMPRESSION: As above.
[2019-10-02 20:28] VITALS: RESP 18; TEMP 97.8
[2019-10-02] MEDS: DALFAMPRIDINE 10 MG PO SCH (20:29)
[2019-10-02] MEDS ORDERED: LOSARTAN 50 MG TAB PO SCH (21:00)
[2019-10-02] MEDS ORDERED: DOXEPIN 25 MG CAP PO SCH (21:00)
[2019-10-03] MEDS: CLINDAMYCIN 900 MG in DEXTROSE 5% IN WATER 50 ML IVPB SCH ×2 (05:01)
[2019-10-03] MEDS: SODIUM CHLORIDE 0.9% 1,000 ML IV SCH (05:03)
[2019-10-03 05:55] VITALS: BP 148/88; PULSE 87
[2019-10-03] MEDS ORDERED: LEVOTHYROXINE 25 MCG TAB PO SCH (06:30)
[2019-10-03] MEDS: DALFAMPRIDINE 10 MG PO SCH (08:41)
[2019-10-03] MEDS ORDERED: VORTIOXETINE HYDROBROMIDE 20 MG TABLET PO SCH (09:00)
[2019-10-03] MEDS ORDERED: CHLORTHALIDONE 25 MG TAB PO SCH (09:00)
[2019-10-03] MEDS ORDERED: lamoTRIgine 25 MG TAB PO SCH (09:00)
[2019-10-03] MEDS ORDERED: SENNOSIDES-DOCUSATE SODIUM 1 EACH TAB PO SCH (09:00)
[2019-10-03] MEDS ORDERED: CHOLECALCIFEROL 1,000 UNIT TAB PO SCH (09:00)
--- NOTE | 2019-10-03 09:08 | P.DS ---
Providers Date of admission: 10/02/19 11:38 Expected date of discharge: 10/03/19 Attending physician: Ninoska Esposito Primary care physician: Ricky Diane - Discharge Diagnosis(es) (1) Cervical spinal stenosis Current Visit: Yes Status: Acute (2) Other cervical disc degeneration at C4-C5 level Current Visit: Yes Status: Acute (3) Other cervical disc degeneration at C6-C7 level Current Visit: Yes Status: Acute (4) S/P cervical spinal fusion Current Visit: Yes Status: Acute (5) H/O cervical spinal arthrodesis Current Visit: Yes Status: Acute (6) Multiple sclerosis Current Visit: Yes Status: Acute (7) Hx of brain cancer Current Visit: Yes Status: Acute Hospital Course: This is a pleasant 49-year-old male who presented with C4-5 and C6-7 cervical stenosis and degenerative disc disease, upper extremity radiculopathy, and history of previous cervical fusion C5-6 who failed outpatient conservative therapy. He was admitted for a C4-5 and C6-7 anterior cervical decompression and fusion with removal of hardware and exploration at C5-6. The patient tolerated the procedure well and did well postoperatively. Patient feels his pain has been adequately controlled with [place]. He does continue to have some left upper extremity radiculopathy. He feels his pain is controlled and he is ready for discharge home. Condition on day of discharge stable. Patient will be discharged home. Patient was cleared preoperatively for surgery by . Patient currently denies any nausea, vomiting, fever, or chills. Patient is eating and voiding freely without difficulty. Patient may shower Optifoam dressing intact. Patient may remove Optifoam dressing in 3 days and shower without a dressing at that time. Patient should keep Steri-Strips intact and allow them to fall off naturally. Patient should refrain from driving until at least after their first follow-up appointment in the office. Patient should avoid excessive neck flexion, extension, rotation, and lateral sidebending; no overhead lifting; no lifting greater than 10 pounds. Patient has a past medical history which includes brain cancer, shunt placement, unsteady gait, and multiple sclerosis. MAPS has been reviewed today, 10/03/2019, with an Overall Overdose Risk Score of 150. An "Opiod Start Talking" Form has been signed and placed in the patient's chart. A prescription has been written for [place] 5 mg/325 mg 1 tab every 6 hours as needed for pain, dispensed #28. Patient should avoid anti-inflammatory medication of the next 6 weeks postoperatively. Patient may resume other previous he prescribed home medications. Physical Exam on day of discharge: Patient is awake, alert, and oriented 3 Vital signs stable Good chest excursion with deep inspiration and expiration Abdomen soft nontender No signs or symptoms of DVT; no calf pain Full range of motion of the cervical spine with adequate flexion, extension, and bilateral rotation Skip Locator strength, thumb strength, interosseous strength, biceps strength, triceps strength, and shoulder strength positive sustained bilaterally Soft cervical collar intact Incision is clean, dry, and intact; no erythema, purulence, or signs of infection Optifoam dressing and non-stick Telfa intact Procedures: C4-5 and C6-7 anterior cervical decompression and fusion with removal of hardware and exploration at C5-6 Patient Condition at Discharge: Stable Plan - Discharge Summary Discharge Rx Participant: No New Discharge Prescriptions: New HYDROcodone/APAP 10-325MG [[place] 10] 1 each PO Q6H PRN #28 tab PRN Reason: Pain No Action Dalfampridine [Dalfampridine ER] 10 mg PO Q12H Vortioxetine Hydrobromide [Trintellix] 20 mg PO QAM Levothyroxine Sodium 25 mcg PO QAM lamoTRIgine [lamoTRIgine ER] 50 mg PO QAM Doxepin HCl [SINEquan] 75 mg PO HS Cholecalciferol [Vitamin D3 (25 Mcg = 1000 Iu)] 1,000 unit PO DAILY Losartan Potassium 100 mg PO HS Chlorthalidone 50 mg PO DAILY Cladribine [Mavenclad] 10 dose PO DIRECTED Baclofen Pump Continous Pump 1 dose SQ-PUMP CONTINUOUS Discharge Medication List Baclofen Pump Continous Pump 1 dose SQ-PUMP CONTINUOUS 09/29/19 [History] Chlorthalidone 50 mg PO DAILY 09/29/19 [History] Cholecalciferol [Vitamin D3 (25 Mcg = 1000 Iu)] 1,000 unit PO DAILY 09/29/19 [History] Cladribine [Mavenclad] 10 dose PO DIRECTED 09/29/19 [History] Dalfampridine [Dalfampridine ER] 10 mg PO Q12H 09/29/19 [History] Doxepin HCl [SINEquan] 75 mg PO HS 09/29/19 [History] Levothyroxine Sodium 25 mcg PO QAM 09/29/19 [History] Losartan Potassium 100 mg PO HS 09/29/19 [History] Vortioxetine Hydrobromide [Trintellix] 20 mg PO QAM 09/29/19 [History] lamoTRIgine [lamoTRIgine ER] 50 mg PO QAM 09/29/19 [History] HYDROcodone/APAP 10-325MG [[place] 10] 1 each PO Q6H PRN #28 tab 10/03/19 [Rx] Follow up Appointment(s)/Referral(s): Bernardo Kaiser, SHRUTI [PHYSICIAN MED SPECIALIST] - 2 Weeks (Patient may follow-up with Bernardo Kaiser PA-C or Dr. Calvin Esposito at [facility] in 2-3 weeks following discharge. ) Activity/Diet/Wound Care/Special Instructions: 1. Patient may shower with Optifoam dressing intact. 2. Patient may remove Optifoam dressing in 3 days and shower without a dressing at that time. 3. 4. Patient should refrain from driving until at least after their first follow-up appointment in the office. 4. Patient should avoid excessive cervical flexion, extension, rotation, sidebending; avoid overhead lifting; no lifting greater than 10 pounds 5. Take medications as prescribed 6. Do not soak in tub Discharge Disposition: HOME SELF-CARE
== END 2019-10-03 11:05 | disposition home or self-care (01) | DRG 472 ==
LOC: 2ORMAIN 11:38 → EDSTATUS 12:30 → 5NMEDONC 15:26
PROVIDERS: ADMIT Orthopaedic Surgery Orthopaedic Surgery of the Spine; ATTEND Orthopaedic Surgery Orthopaedic Surgery of the Spine
PROC: 0RP10AZ Removal of Interbody Fusion Device from Cervical Vertebral Joint, Open Approach (ICD-10-PCS; principal; 2019-10-02 12:30)
PROC: 0RG20A0 Fusion of 2 or more Cervical Vertebral Joints with Interbody Fusion Device, Anterior Approach, Anterior Column, Open Approach (ICD-10-PCS; principal; 2019-10-02 12:30)
PROC: 00NW3ZZ Release Cervical Spinal Cord, Percutaneous Approach (ICD-10-PCS; principal; 2019-10-02 12:30)
PROC: 0RB30ZZ Excision of Cervical Vertebral Disc, Open Approach (ICD-10-PCS; principal; 2019-10-02 12:30)
PROC: 01N10ZZ Release Cervical Nerve, Open Approach (ICD-10-PCS; principal; 2019-10-02 12:30)
DX: M48.02 Spinal stenosis, cervical region (principal); M50.021 Cervical disc disorder at C4-C5 level with myelopathy; M50.121 Cervical disc disorder at C4-C5 level with radiculopathy; G35 Multiple sclerosis; H91.90 Unspecified hearing loss, unspecified ear; F41.9 Anxiety disorder, unspecified; F32.9 Major depressive disorder, single episode, unspecified; R26.9 Unspecified abnormalities of gait and mobility; E66.9 Obesity, unspecified; I10 Essential (primary) hypertension; M25.78 Osteophyte, vertebrae; Z88.1 Allergy status to other antibiotic agents; Z85.841 Personal history of malignant neoplasm of brain; Z98.2 Presence of cerebrospinal fluid drainage device; Z79.899 Other long term (current) drug therapy; Z88.5 Allergy status to narcotic agent; Z88.0 Allergy status to penicillin; Z88.2 Allergy status to sulfonamides; Z98.890 Other specified postprocedural states; Z82.49 Family history of ischemic heart disease and other diseases of the circulatory system; Z68.37 Body mass index [BMI] 37.0-37.9, adult
CPT/HCPCS: 72020; 81001; 86850; 86900; 86901; 94760

== ENCOUNTER → 2020-01-30 | Outpatient (CLI) | payer MEDICARE, OTHER ==
[2020-01-30 14:35] LABS: Basophils % (A) 0 %; Eosinophils # (A) 0.2 k/uL (0-0.7); Eosinophils % (A) 2 %; HCT 40.4 % (39.0-53.0); HGB 14.3 gm/dL (13.0-17.5); Lymphocytes # (A) 0.8 k/uL (1.0-4.8); Lymphocytes % (A) 8 %; MCH 33.5 pg (25.0-35.0); MCHC 35.4 g/dL (31.0-37.0); MCV 94.6 fL (80.0-100.0); Mean Platelet Volume 7.1; Monocytes # (A) 0.4 k/uL (0-1.0); Monocytes % (A) 4 %; Neutrophils # (A) 8.2 k/uL (1.3-7.7); Neutrophils % (A) 83 %; Platelet Count 227 k/uL (150-450); RBC 4.27 m/uL (4.30-5.90); RDW 13.7 % (11.5-15.5); WBC 9.8 k/uL (3.8-10.6)
[2020-01-30 21:15] LABS: HIV 2 AB Non-Reactive (Non-Reactive); HIV AB P24 Non-Reactive (Non-Reactive); HIV P24 AG Non-Reactive (Non-Reactive)
[2020-01-30 21:41] LABS: African American GFR (CKD) 62.9 (60.0-200.0); Albumin 4.5 g/dL (3.80-4.90); Albumin/Globulin Ratio 2.14 (1.60-3.17); BUN/Creat Ratio 12.67 Ratio (12.00-20.00); Calcium 10.2 mg/dL (8.7-10.3); Globulin 2.1 g/dL (1.6-3.3); Non-African American GFR(CKD) 54.3 (60.0-200.0); Potassium 3.5 mmol/L (3.5-5.5); Total Bilirubin 0.8 mg/dL (0.3-1.2); Total Protein 6.6 g/dL (6.2-8.2)
[2020-01-30 21:50] LABS: T4, Free (Free Thyroxine) 1.1 ng/dL (0.80-1.80)
[2020-01-31 00:41] LABS: Hepatitis B Core IgM Non-Reactive (Non-Reactive); Hepatitis B Surface AB- Quant 3.5 mIU/mL; Hepatitis B Surface Antibody Non-Reactive (Non-Reactive); Hepatitis B Surface Antigen Non-Reactive (Non-Reactive)
[2020-01-31 04:54] LABS: Varicella IgM Antibody 0.29 INDEX (<=0.90)
[2020-02-02 06:04] LABS: Vit B1(Thiamine) 50 ug/L (38-122)
[2020-02-08 07:09] LABS: Nicotinamide 23 ng/mL; Nicotinic Acid None Detected; Nicotinuric Acid None Detected
== END | disposition home or self-care (01) ==
LOC: LABWHC1 13:00
PROVIDERS: ATTEND Psychiatry & Neurology Pain Medicine
DX: G35 Multiple sclerosis (principal); Z51.81 Encounter for therapeutic drug level monitoring; E55.9 Vitamin D deficiency, unspecified; E11.9 Type 2 diabetes mellitus without complications
CPT/HCPCS: 36415; 80053; 82306; 82607; 82746; 83036; 84425; 84439; 84443; 84481; 84591; 85025; 86704; 86705; 86706; 86787; 87340; 87390

== ENCOUNTER → 2020-03-07 | Outpatient (CLI) | payer MEDICARE, OTHER | END | disposition home or self-care (01) | LOC: LABWHC1 14:26 | PROVIDERS: ATTEND Psychiatry & Neurology Pain Medicine | DX: Z51.81 Encounter for therapeutic drug level monitoring (principal); Z79.899 Other long term (current) drug therapy; G35 Multiple sclerosis | CPT/HCPCS: 36415; 84207 ==

== ENCOUNTER → 2020-04-23 | Outpatient (CLI) | payer MEDICARE, OTHER ==
--- NOTE | 2020-04-23 14:15 | US ---
EXAMINATION TYPE: US carotid duplex BILAT DATE OF EXAM: 04/23/2020 COMPARISON: NONE CLINICAL HISTORY: R41.82 Altered mental status, unspecified. AMS EXAM MEASUREMENTS: RIGHT: Peak Systolic Velocity (PSV) cm/sec ----- Right CCA: 115 ----- Right ICA: 104 ----- Right ECA: 105 ICA/CCA ratio: 0.9 RIGHT: End Diastole cm/sec ----- Right CCA: 34.7 ----- Right ICA: 30.6 ----- Right ECA: 19.0 LEFT: Peak Systolic Velocity (PSV) cm/sec ----- Left CCA: 122 ----- Left ICA: 93.1 ----- Left ECA: 103 ICA/CCA ratio: 0.8 LEFT: End Diastole cm/sec ----- Left CCA: 38.1 ----- Left ICA: 46.9 ----- Left ECA: 23.1 VERTEBRALS (direction of flow): Right Vertebral: Antegrade Left Vertebral: unable to visualize Rhythm: Normal Mild plaque bilateral bifurcations. No evidence of significant stenosis IMPRESSION: No evidence for hemodynamically significant stenosis. Criteria for Assigning % of Stenosis / Diameter reduction (Estimation based on the indirect measurements of the internal carotid artery velocities (ICA PSV). 1. Normal (no stenosis)=ICA PSV < 125 cm/s: ratio < 2.0: ICA EDV<40 cm/s. 2. Less than 50% stenosis=ICA PSV < 125 cm/s: ratio < 2.0: ICA EDV<40 cm/s. 3. 50 to 69% stenosis=ICA PSV of 125 to 230 cm/s: ration 2.0 ? 4.0: ICA EDV 40-100 cm/s. 4. Greater than 70% stenosis to near occlusion= ICA PSV > 230 cm/s: ratio > 4.0: ICA EDV > 100 cm/s. 5. Near occlusion= ICA PSV velocities may be low or undetectable: variable ratio and ICA EDV. 6. Total occlusion=unable to detect flow.
== END | disposition home or self-care (01) ==
LOC: RADUSWWP 13:39
PROVIDERS: ATTEND Psychiatry & Neurology Neurology
DX: R41.82 Altered mental status, unspecified (principal)
CPT/HCPCS: 93880

== ENCOUNTER 2020-05-20 13:32 | Inpatient (IN) | payer MEDICARE, OTHER ==
--- NOTE | 2020-05-20 13:56 | ED ---
General Adult HPI - General Chief complaint: Chest Pain Stated complaint: Chest pain Time Seen by Provider: 05/20/20 13:35 Source: patient, RN notes reviewed, old records reviewed Mode of arrival: wheelchair Limitations: no limitations - History of Present Illness Initial comments: This is a 50-year-old male who presents to the emergency department complaining of some upper chest pain he states it feels tight like he is asthma that he had when he was a kid however he also is complaining of a three-day history of headache. Patient states it came on gradually is continue to get worse per patient states back in 1991 he has brain tumor that was removed and he has had no problems since. Patient states this discomfort in the upper chest again is a tightness. Patient denies any radiation of the tightness. Patient denies any difficulty breathing. Patient denies any nausea vomiting. Patient has any back pain. Patient denies any abdominal pain. Patient states he does have a history of high blood pressure high cholesterol. Patient also states he has MS so he has a baclofen pump in place. - Related Data Home Medications Medication Instructions Recorded Confirmed Baclofen Pump Continous Pump 1 dose SQ-PUMP CONTINUOUS 09/29/19 05/20/20 Chlorthalidone 50 mg PO DAILY 09/29/19 05/20/20 Cholecalciferol [Vitamin D3 (25 1,000 unit PO DAILY 09/29/19 05/20/20 Mcg = 1000 Iu)] Dalfampridine [Dalfampridine ER] 10 mg PO Q12H 09/29/19 05/20/20 Doxepin HCl [SINEquan] 75 mg PO HS 09/29/19 05/20/20 Levothyroxine Sodium 25 mcg PO QAM 09/29/19 05/20/20 Losartan Potassium 100 mg PO HS 09/29/19 05/20/20 Vortioxetine Hydrobromide 20 mg PO QAM 09/29/19 05/20/20 [Trintellix] LORazepam [Ativan] 0.5 mg PO BID PRN 05/20/20 05/20/20 Pravastatin Sodium [Pravachol] 10 mg PO DAILY 05/20/20 05/20/20 predniSONE See Taper PO DAILY 05/20/20 05/20/20 Allergies Allergy/AdvReac Type Severity Reaction Status Date / Time cephalexin Allergy Unknown Unknown Verified 05/20/20 14:52 codeine Allergy Rash/Hives Verified 05/20/20 14:52 Penicillins Allergy Vomiting Verified 05/20/20 14:52 Sulfa (Sulfonamide Allergy Anaphylaxis Verified 05/20/20 14:52 Antibiotics) vancomycin Allergy Rash/Hives Verified 05/20/20 14:52 Review of Systems ROS Statement: Those systems with pertinent positive or pertinent negative responses have been documented in the HPI. ROS Other: All systems not noted in ROS Statement are negative. Past Medical History Past Medical History: Hypertension, Sleep Apnea/CPAP/BIPAP Additional Past Medical History / Comment(s): brain cancer, KIDNEY STONES, multiple sclerosis History of Any Multi-Drug Resistant Organisms: None Reported Past Surgical History: Hernia Repair, Orthopedic Surgery Additional Past Surgical History / Comment(s): brain surgery, , RT ARM ULNAR NERVE SX, X25 SHUNT PLACEMENT/REVISON SX, UMBILICAL HERNIA AND HIATL HERNIA, KATHERINE KNEE ARTHROSCOPIES,NECK FUSION HAS METAL PLATE C-5,C-6 Past Anesthesia/Blood Transfusion Reactions: No Reported Reaction Additional Past Anesthesia/Blood Transfusion Reaction / Comment(s): no hx blood transfusion Past Psychological History: Depression Smoking Status: Never smoker Past Alcohol Use History: Occasional Past Drug Use History: None Reported - Past Family History Mother Family Medical History: No Reported History General Exam - General Exam Comments Initial Comments: GENERAL: Patient is well-developed and well-nourished. Patient is nontoxic and well- hydrated and is in mild distress. ENT: Neck is soft and supple. No significant lymphadenopathy is noted. Oropharynx is clear. Moist mucous membranes. Neck has full range of motion without eliciting any pain. EYES: The sclera were anicteric and conjunctiva were pink and moist. Extraocular movements were intact and pupils were equal round and reactive to light. Eyelids were unremarkable. PULMONARY: Unlabored respirations. Good breath sounds bilaterally. No audible rales rhonchi or wheezing was noted. CARDIOVASCULAR: There is a regular rate and rhythm without any murmurs gallops or rubs. ABDOMEN: Soft and nontender with normal bowel sounds. No palpable organomegaly was noted. There is no palpable pulsatile mass. SKIN: Skin is clear with no lesions or rashes and otherwise unremarkable. NEUROLOGIC: Patient is alert and oriented x3. Cranial nerves II through XII are grossly intact. Motor and sensory are also intact. Normal speech, volume and content. Symmetrical smile. MUSCULOSKELETAL: Normal extremities with adequate strength and full range of motion. LYMPHATICS: No significant lymphadenopathy is noted PSYCHIATRIC: Normal psychiatric evaluation. Limitations: no limitations Course Vital Signs 05/20/20 05/20/20 13:34 15:00 Temperature 98.2 F Pulse Rate 107 H 88 Respiratory 20 18 Rate Blood Pressure 117/72 129/78 O2 Sat by Pulse 96 99 Oximetry Medical Decision Making - Medical Decision Making EKG normal sinus rhythm at 94 bpm VT interval is 122 QRS is 74 QT interval 350 QTC is 437. Patient's EKG shows no ST segment elevation or depression. CT shows a small frontal bleed as well as a possible subarachnoid on the left cerebral peduncle. I spoke with Dr. Mai and he was not that concerned about this but he wanted the patient to stay and get an MRI I spoke with Dr. Diane he agreed to admit the patient admitted the patient and ordered MRI. Patient was in agreement. I consult the neurology - Lab Data Result diagrams: 05/20/20 13:55 05/20/20 13:55 Lab Results 05/20/20 05/20/20 05/20/20 Range/Units 13:55 13:55 13:55 WBC 7.2 (3.8-10.6) k/uL RBC 4.34 (4.30-5.90) m/uL Hgb 14.8 (13.0-17.5) gm/dL Hct 41.2 (39.0-53.0) % MCV 95.0 (80.0-100.0) fL MCH 34.0 (25.0-35.0) pg MCHC 35.8 (31.0-37.0) g/dL RDW 13.2 (11.5-15.5) % Plt Count 197 (150-450) k/uL MPV 7.0 Neutrophils % 89 % Lymphocytes % 3 % Monocytes % 4 % Eosinophils % 2 % Basophils % 0 % Neutrophils # 6.4 (1.3-7.7) k/uL Lymphocytes # 0.2 L (1.0-4.8) k/uL Monocytes # 0.3 (0-1.0) k/uL Eosinophils # 0.1 (0-0.7) k/uL Basophils # 0.0 (0-0.2) k/uL PT 9.5 (9.0-12.0) sec INR 0.9 (<1.2) APTT 20.1 L (22.0-30.0) sec Sodium 131 L (137-145) mmol/L Potassium 4.1 (3.5-5.1) mmol/L Chloride 94 L (98-107) mmol/L Carbon Dioxide 27 (22-30) mmol/L Anion Gap 10 mmol/L BUN 25 H (9-20) mg/dL Creatinine 0.86 (0.66-1.25) mg/dL Est GFR (CKD-EPI)AfAm >90 (>60 ml/min/1.73 sqM) Est GFR (CKD-EPI)NonAf >90 (>60 ml/min/1.73 sqM) Glucose 266 H (74-99) mg/dL Calcium 9.4 (8.4-10.2) mg/dL Magnesium 1.8 (1.6-2.3) mg/dL Total Bilirubin 0.9 (0.2-1.3) mg/dL AST 25 (17-59) U/L ALT 34 (4-49) U/L Alkaline Phosphatase 73 (38-126) U/L Troponin I (0.000-0.034) ng/mL Total Protein 6.7 (6.3-8.2) g/dL Albumin 4.3 (3.5-5.0) g/dL 05/20/20 Range/Units 13:55 WBC (3.8-10.6) k/uL RBC (4.30-5.90) m/uL Hgb (13.0-17.5) gm/dL Hct (39.0-53.0) % MCV (80.0-100.0) fL MCH (25.0-35.0) pg MCHC (31.0-37.0) g/dL RDW (11.5-15.5) % Plt Count (150-450) k/uL MPV Neutrophils % % Lymphocytes % % Monocytes % % Eosinophils % % Basophils % % Neutrophils # (1.3-7.7) k/uL Lymphocytes # (1.0-4.8) k/uL Monocytes # (0-1.0) k/uL Eosinophils # (0-0.7) k/uL Basophils # (0-0.2) k/uL PT (9.0-12.0) sec INR (<1.2) APTT (22.0-30.0) sec Sodium (137-145) mmol/L Potassium (3.5-5.1) mmol/L Chloride (98-107) mmol/L Carbon Dioxide (22-30) mmol/L Anion Gap mmol/L BUN (9-20) mg/dL Creatinine (0.66-1.25) mg/dL Est GFR (CKD-EPI)AfAm (>60 ml/min/1.73 sqM) Est GFR (CKD-EPI)NonAf (>60 ml/min/1.73 sqM) Glucose (74-99) mg/dL Calcium (8.4-10.2) mg/dL Magnesium (1.6-2.3) mg/dL Total Bilirubin (0.2-1.3) mg/dL AST (17-59) U/L ALT (4-49) U/L Alkaline Phosphatase (38-126) U/L Troponin I <0.012 (0.000-0.034) ng/mL Total Protein (6.3-8.2) g/dL Albumin (3.5-5.0) g/dL Disposition Clinical Impression: Subarachnoid bleed, Chest pain Disposition: ADMITTED IP TO THIS [facility] Referrals: Ricky Diane MD [Primary Care Provider] - 1-2 days Time of Disposition: 16:30
[2020-05-20 14:08] LABS: Basophils % (A) 0 %; Eosinophils # (A) 0.1 k/uL (0-0.7); Eosinophils % (A) 2 %; HCT 41.2 % (39.0-53.0); HGB 14.8 gm/dL (13.0-17.5); Lymphocytes # (A) 0.2 k/uL (1.0-4.8); Lymphocytes % (A) 3 %; MCHC 35.8 g/dL (31.0-37.0); Monocytes # (A) 0.3 k/uL (0-1.0); Monocytes % (A) 4 %; Neutrophils # (A) 6.4 k/uL (1.3-7.7); Neutrophils % (A) 89 %; Platelet Count 197 k/uL (150-450); RBC 4.34 m/uL (4.30-5.90); RDW 13.2 % (11.5-15.5); WBC 7.2 k/uL (3.8-10.6)
[2020-05-20 14:18] LABS: ALT 34 U/L (4-49); AST 25 U/L (17-59); African American GFR (CKD) >90 (>60 ml/min/1.73 sqM); Albumin 4.3 g/dL (3.5-5.0); Alkaline Phosphatase 73 U/L (38-126); Anion Gap 10 mmol/L; Blood Urea Nitrogen 25 mg/dL (9-20); Calcium 9.4 mg/dL (8.4-10.2); Carbon Dioxide 27 mmol/L (22-30); Chloride 94 mmol/L (98-107); Glucose 266 mg/dL (74-99); Magnesium 1.8 mg/dL (1.6-2.3); Non-African American GFR(CKD) >90 (>60 ml/min/1.73 sqM); Potassium 4.1 mmol/L (3.5-5.1); Sodium 131 mmol/L (137-145); Total Bilirubin 0.9 mg/dL (0.2-1.3); Total Protein 6.7 g/dL (6.3-8.2)
[2020-05-20 14:27] LABS: INR 0.9 (<1.2); Prothrombin Time 9.5 sec (9.0-12.0)
--- NOTE | 2020-05-20 14:34 | XR ---
EXAMINATION TYPE: XR chest 2V DATE OF EXAM: 05/20/2020 COMPARISON: Chest x-ray 09/29/2019 HISTORY: Chest pain TECHNIQUE: Frontal and lateral views of the chest are obtained. FINDINGS: Patient is rotated. Biapical pleural thickening was not evident on prior exam. Interval torey mike to the lower cervical spine. There is no focal air space opacity, pleural effusion, or pneumotho rax seen. The cardiac silhouette size is stable accounting for differences in technique. The osseo us structures are intact. IMPRESSION: Rotated exam. Interval biapical pleural thickening is indeterminate.
[2020-05-20 14:39] LABS: Partial Thromboplastin Time 20.1 sec (22.0-30.0)
--- NOTE | 2020-05-20 14:59 | CT ---
EXAMINATION TYPE: CT brain wo con DATE OF EXAM: 05/20/2020 COMPARISON: CT brain 12/29/2014 HISTORY: Headache with weakness. History of MS. CT DLP: 1202.4 mGycm. Automated Exposure Control for Dose Reduction was Utilized. TECHNIQUE: CT scan of the head is performed without contrast. FINDINGS: There is right frontal hyperintensity present possibly representing focal contusion, diff icult to exclude some limited subarachnoid hemorrhage versus petechial hemorrhage along the right fro ntal lobe, axial image 21. Right frontal white matter hypointensity, periventricular hypointensity ag ain seen. Some scalp calcifications have developed in the interval. Cortical atrophy is again noted. Postop changes are noted the posterior calvarium, calcifications in the cerebellar hemispheres with s ome encephalomalacia in the inferior left cerebellar hemisphere, dilated fourth ventricle likely due to ex vacuo phenomenon again noted. Asymmetric increased attenuation seen along the left renal pedunc le IMPRESSION: Small focus of increased attenuation, possibly subarachnoid hemorrhage with some asymmetr ic density at the left cerebral peduncle. Postop changes. White matter demyelination. Case discussed with Dr. Chapa telephonically.
--- NOTE | 2020-05-20 15:36 | CT ---
CT angiogram of the head HISTORY: Subarachnoid hemorrhage Helical acquisition obtained through the brain during dynamic administration of 100 cc Isovue-370 IV. Three-dimensional reconstructions performed on an alternate workstation. Automated exposure control for dose reduction, DLP 1247.2 mGy centimeters Correlation to head CT 05/20/2020 Vertebral arteries are codominant and patent. Anterior circulation also enhances normally. There is n o evident dissection, aneurysm, or embolus. Small focus of increased attenuation within the cole towards the midline is a chronic finding and cou ld be related to vascular malformation. IMPRESSION: Source of patient's subarachnoid hemorrhage is not evident.
[2020-05-20] MEDS ORDERED: NITROGLYCERIN SL TABS 0.4 MG TAB SUBLINGUAL PRN (16:32)
--- NOTE | 2020-05-20 18:50 | P.HPIM ---
History of Present Illness H&P Date: 05/20/20 Campbell De Los Santos is a 50-year-old male who presented to [facility] emergency room with a chief complaint of chest tightness and headache he was evaluated in the emergency room vital examination on presentation revealed a temperature of 98.2 pulse 107 respiration 20 blood pressure 117/72 pulse ox 96% on room air his laboratory data revealed a white blood count of 7.2 hemoglobin 14.8 platelet count 197 sodium 131 potassium 4.1 chloride 94 CO2 27 BUN 25 creatinine 0.86 glucose level was elevated at 266 troponin level was normal at 0.012 chest x-ray was done in the emergency room and revealed biapical pleural thickening otherwise no acute abnormality, EKG was done in the emergency room and revealed normal sinus rhythm with nonspecific ST and T-wave abnormality, computed tomography scan of the brain revealed small focus of increased attenuation possibly related to subarachnoid hemorrhage with asymmetric density at the left cerebral peduncle and postoperative changes related to remote brain surgery and evidence of white matter demyelination. CT angiogram of the brain was done, the source of patient's subarachnoid hemorrhage was not evident. Dr. Chapa in the emergency room contacted neurosurgery at a tertiary care center who advised that patient does not need to be transferred, patient was admitted to the hospital MRI of the brain was ordered and neurology consultation was requested. Patient has a known history of multiple sclerosis, patient has a baclofen pump , he is followed by neurologist Dr. Castillo as outpatient , history of hypertension, history of obstructive sleep apnea, history of anxiety disorder, he also has a known history of brain tumor that was removed in 1991. On review of systems patient is complaining of headache he is complaining of some chest tightness, he stated that it reminded him of episodes of asthma that he had as a teenager, otherwise he denies any complaints there is no fever or chills no dizziness no chest pain no shortness of breath no cough no nausea or vomiting no abdominal pain no diarrhea no blood in the stools no burning with urination no frequency or urgency and no hematuria. Past Medical History Past Medical History: Hypertension, Sleep Apnea/CPAP/BIPAP Additional Past Medical History / Comment(s): brain cancer, KIDNEY STONES, multiple sclerosis History of Any Multi-Drug Resistant Organisms: None Reported Past Surgical History: Hernia Repair, Orthopedic Surgery Additional Past Surgical History / Comment(s): brain surgery, , RT ARM ULNAR NERVE SX, X25 SHUNT PLACEMENT/REVISON SX, UMBILICAL HERNIA AND HIATL HERNIA, KATHERINE KNEE ARTHROSCOPIES,NECK FUSION HAS METAL PLATE C-5,C-6 Past Anesthesia/Blood Transfusion Reactions: No Reported Reaction Additional Past Anesthesia/Blood Transfusion Reaction / Comment(s): no hx blood transfusion Past Psychological History: Depression Smoking Status: Never smoker Past Alcohol Use History: Occasional Past Drug Use History: None Reported - Past Family History Mother Family Medical History: No Reported History Medications and Allergies Home Medications Medication Instructions Recorded Confirmed Type Baclofen Pump Continous Pump 1 dose SQ-PUMP CONTINUOUS 09/29/19 05/20/20 History Chlorthalidone 50 mg PO DAILY 09/29/19 05/20/20 History Cholecalciferol [Vitamin D3 (25 1,000 unit PO DAILY 09/29/19 05/20/20 History Mcg = 1000 Iu)] Dalfampridine [Dalfampridine ER] 10 mg PO Q12H 09/29/19 05/20/20 History Doxepin HCl [SINEquan] 75 mg PO HS 09/29/19 05/20/20 History Levothyroxine Sodium 25 mcg PO QAM 09/29/19 05/20/20 History Losartan Potassium 100 mg PO HS 09/29/19 05/20/20 History Vortioxetine Hydrobromide 20 mg PO QAM 09/29/19 05/20/20 History [Trintellix] LORazepam [Ativan] 0.5 mg PO BID PRN 05/20/20 05/20/20 History Pravastatin Sodium [Pravachol] 10 mg PO DAILY 05/20/20 05/20/20 History predniSONE See Taper PO DAILY 05/20/20 05/20/20 History Allergies Allergy/AdvReac Type Severity Reaction Status Date / Time cephalexin Allergy Unknown Unknown Verified 05/20/20 14:52 codeine Allergy Rash/Hives Verified 05/20/20 14:52 Penicillins Allergy Vomiting Verified 05/20/20 14:52 Sulfa (Sulfonamide Allergy Anaphylaxis Verified 05/20/20 14:52 Antibiotics) vancomycin Allergy Rash/Hives Verified 05/20/20 14:52 Physical Exam Vitals: Vital Signs Temp Pulse Resp BP Pulse Ox 05/20/20 16:34 76 20 136/98 96 05/20/20 15:00 88 18 129/78 99 05/20/20 13:34 98.2 F 107 H 20 117/72 96 Intake and Output 05/20/20 05/20/20 05/20/20 06:59 14:59 22:59 Other: Weight 149.685 kg In general patient is alert and oriented 3 in no apparent distress HEENT head normocephalic and atraumatic Neck is supple no JVD no goiter no lymphadenopathy no carotid bruit Chest exam reveals a few scattered rhonchi no wheezing Cardiac exam reveals regular heart sounds S1 and S2 no gallops no murmurs Abdomen is soft nontender no organomegaly with normal bowel sounds Extremity exam reveals no edema no cyanosis or clubbing Neurological examination reveals no gross focal deficit Results CBC & Chem 7: 05/20/20 13:55 05/20/20 13:55 Labs: Abnormal Lab Results - Last 24 Hours (Table) 05/20/20 05/20/20 05/20/20 Range/Units 13:55 13:55 13:55 Lymphocytes # 0.2 L (1.0-4.8) k/uL APTT 20.1 L (22.0-30.0) sec Sodium 131 L (137-145) mmol/L Chloride 94 L (98-107) mmol/L BUN 25 H (9-20) mg/dL Glucose 266 H (74-99) mg/dL Assessment and Plan Plan: 1. Episodes of headaches that started 3 days ago, with computed tomography scan of the brain revealing possible subarachnoid hemorrhage, patient denies any history of head trauma , he is not on any blood thinners , neurology consultation was requested awaiting MRI of the brain 2. Chest tightness cause is unclear, Will consult pulmonary chest x-ray is revealing evidence of biapical pleural thickening which is new since last exam. 3. Underlying history of hypertension 4. Underlying history of obstructive sleep apnea 5. Remote history of brain tumor resection in 1991 6. Underlying history of hypothyroidism 7. Underlying history of multiple sclerosis patient has a baclofen pump he follows with Dr. Oropeza as outpatient At this time home medications reviewed and reordered Awaiting MRI of the brain Awaiting neurology and pulmonary input Will follow closely
[2020-05-20] MEDS ORDERED: LORazepam 0.5 MG TAB PO PRN (18:51)
[2020-05-20] MEDS ORDERED: [UNRECOGNIZED DRUG - REMARK] SQ PRN (19:00)
[2020-05-20] MEDS ORDERED: LOSARTAN 50 MG TAB PO SCH (21:00)
[2020-05-20] MEDS ORDERED: DOXEPIN 25 MG CAP PO SCH (21:00)
[2020-05-20 22:27] VITALS: RESP 16
[2020-05-20] MEDS ORDERED: LABETALOL 5 MG/ML VIAL MDV IVP PRN (22:41)
--- NOTE | 2020-05-20 23:05 | MR ---
EXAMINATION TYPE: MR brain wo/w con DATE OF EXAM: 05/20/2020 COMPARISON: 04/08/2016 HISTORY: Possible subarachnoid hemorrhage. CONTRAST: Standard multiplanar, multisequence MRI departmental protocol utilizing 15 mL intravenous Gadavist ga dolinium contrast. Multiplanar multiecho imaging of the brain was performed without and with IV contrast. There is some enlargement of the ventricles. There is 2 cm area of increased signal right posterior f rontal lobe white matter consistent with an old lacunar infarct. Diffusion images show small area of convexity increased signal in the right frontal lobe on axial image 21.. There is some thinning of th e corpus callosum. There is patchy increased signal on the T2 and FLAIR images around the lateral ventricles with coales cent density around the occipital horns of the lateral ventricles. There is also bilateral diffuse wh ite matter increased signal in the cerebellum. There is atrophy of the inferior cerebellum. The sella turcica is intact. There is some minimal meningeal enhancement at the right frontal lobe convexity. T1 noncontrast image s do not show increased signal on this area to suggest hemorrhage. There is normal contrast opacifica tion of the venous sinuses. IMPRESSION: Extensive white matter signal changes as above involving the cerebellum and right posterior frontal l obe and bilateral occipital lobes consistent with multiple lacunar infarcts and encephalomalacia. Cer ebral atrophy. Significant inferior cerebellar encephalomalacia. There is some right frontal lobe convexity meningeal and cortical enhancement that could relate to morales bacute small cortical infarct. No T1 noncontrast increased signal in the right frontal lobe to sugges t hemorrhage.
[2020-05-21] MEDS ORDERED: LEVOTHYROXINE 25 MCG TAB PO SCH (06:30)
--- NOTE | 2020-05-21 06:38 | CT ---
EXAM: CT Head Without Intravenous Contrast CLINICAL HISTORY: ITS.REASON CT Reason: Headache; Neuro deficit TECHNIQUE: Axial computed tomography images of the head/brain without intravenous contrast. CTDI is 49.27 mGy and DLP is 1201.4 mGy-cm. This CT exam was performed using one or more of the following dose reduction techniques: automated exposure control, adjustment of the mA and/or kV according to patient size, and/or use of iterative reconstruction technique. COMPARISON: CT 05/20/20. FINDINGS: No significant interval change. Redemonstration of scattered hyperdensities as previously described. No new mass effect or midline shift. Stable ventricular system. Additional findings similar to prior. IMPRESSION: No significant interval change.
[2020-05-21 07:37] LABS: Basophils % (A) 0 %; Eosinophils # (A) 0.1 k/uL (0-0.7); Eosinophils % (A) 1 %; HCT 39.3 % (39.0-53.0); HGB 13.4 gm/dL (13.0-17.5); Lymphocytes # (A) 0.2 k/uL (1.0-4.8); Lymphocytes % (A) 4 %; MCH 33.2 pg (25.0-35.0); MCHC 34.1 g/dL (31.0-37.0); MCV 97.1 fL (80.0-100.0); Monocytes # (A) 0.3 k/uL (0-1.0); Monocytes % (A) 5 %; Neutrophils # (A) 4.9 k/uL (1.3-7.7); Neutrophils % (A) 88 %; Platelet Count 184 k/uL (150-450); RBC 4.04 m/uL (4.30-5.90); RDW 13.4 % (11.5-15.5); WBC 5.6 k/uL (3.8-10.6)
[2020-05-21 07:47] LABS: ALT 35 U/L (4-49); AST 29 U/L (17-59); African American GFR (CKD) >90 (>60 ml/min/1.73 sqM); Albumin 3.7 g/dL (3.5-5.0); Alkaline Phosphatase 66 U/L (38-126); Anion Gap 4 mmol/L; Blood Urea Nitrogen 24 mg/dL (9-20); Calcium 9.1 mg/dL (8.4-10.2); Carbon Dioxide 34 mmol/L (22-30); Chloride 95 mmol/L (98-107); Cholesterol 253 mg/dL (<200); Glucose 169 mg/dL (74-99); HDL Cholesterol 72 mg/dL (40-60); LDL Cholesterol,Calculated 102 mg/dL (0-99); Non-African American GFR(CKD) 86 (>60 ml/min/1.73 sqM); Potassium 3.7 mmol/L (3.5-5.1); Sodium 133 mmol/L (137-145); Total Bilirubin 0.7 mg/dL (0.2-1.3); Total Protein 5.9 g/dL (6.3-8.2); Triglycerides 393 mg/dL (<150)
[2020-05-21] MEDS ORDERED: PRAVASTATIN SODIUM 20 MG TAB PO SCH (09:00)
[2020-05-21] MEDS ORDERED: predniSONE 10 MG TAB PO SCH (09:00)
[2020-05-21] MEDS ORDERED: CHLORTHALIDONE 25 MG TAB PO SCH (09:00)
[2020-05-21] MEDS ORDERED: VORTIOXETINE HYDROBROMIDE 20 MG TABLET PO SCH (09:00)
[2020-05-21] MEDS ORDERED: ASPIRIN 325 MG TAB PO SCH (09:00)
[2020-05-21] MEDS ORDERED: CHOLECALCIFEROL 25 MCG (1000 IU) TABLET PO SCH (09:00)
[2020-05-21 09:49] VITALS: TEMP 98.2
--- NOTE | 2020-05-21 09:59 | P.CNNES ---
History of Present Illness Consult date: 05/21/20 Requesting physician: Grzegorz Chapa Reason for Consult: possible subarachnoid hemorrhage History of Present Illness: This is a 50-year-old gentleman with medical history of brain cancer s/p removal 1991 with multiple s/p shunt with revisions and rupesh holes, hypertension, neck fusion in C5-C6, hypercholesterolemia and multiple sclerosis on baclofen pump that presented to the emergency department on 05/20/2020 for 5 day history of headache. He said the headache is located on the bilateral frontal region that radiates back to the occipital region. The headche is 5/10 and felt it got somewhat worse yesterday. It is a poorly described headache. He denies nausea, vomitting, diplopia or visual disturbance. He states when he looks to the far right he has dizziness that has been going on since the past 1-2 months. He denies of any new weakness or new paresthesia. He denies difficulty getting his words out. Since he has been in the hospital he denies worsening of headaches. Patient denies any trauma to the head in the last 2 months, and he falls. He denies being on at any antiplatelets or anticoagulation. The patient follows up with Dr. Boss for past 3-4 years and regarding the feeling dizzy upon looking to the right he stated that he had imaging as well as he had a carotid duplex in April and a carotid duplex was normal. He said that he has a history of brain cancer in the fourth ventricle and that was in 1991 and he had it removed and he had multiple bur holes as well as shunt with multiple revisions in the past. Patient stated that he was diagnosed with multiple sclerosis and saw Dr. Sorensen (neurologist at [facility]) and had extensive testing initially was thought that he had a stroke but after further testing the he was told he has multiple sclerosis. Patient stated that he doesn't need any assistance with walk-in and his residual is somewhat weakness in the lower extremities but paresthesia and the left the second to the fifth toes. Workup in the hospital consisted of: Initial vitals: Pressure of 117/72, heart rate of 107, respiratory of 20, temperature of 98.2 Fahrenheit oral and pulse ox of 96% room air. In the ED the patient had an itch initial CT of the head which was reported as small focus of increased attenuation, possibly subarachnoid hemorrhage with some asymmetric density at the left cerebral peduncle. Was a bad changes. White matter demyelination. There is an addendum and it's reported as small focus of increased attenuation in the without cole toward the midline is a chronic finding and can be related to vascular malformation. MRI of the brain was ordered by the ED and is reported as extensive white matter signal change as above involving the cerebellar and right posterior frontal lobe and bilateral occipital lobe consistent with multiple lacunar infarct and encephalomalacia. Cerebral atrophy. Significant inferior cerebellar encephalomalacia. There is some right frontal lobe convexity meningeal and cortical enhancement that could relate to subacute small cortical infarct. No T1 9 noncontrast increased signal in the right frontal lobe to suggest hemorrhage. CTA of the head is reported as source of patient's subarachnoid hemorrhage is not evident. I ordered a repeat CT of the head for the today and it was done around 6ish am today and is reported as no significant interval change. White blood cells 7.2 which is normal. Glucose on presentation is 266. Lipid panel triglyceride of 393, cholesterol is 253, LDLs 102 and HDL 72. Review of Systems Review of system: The 12 point system was reviewed and apparent positive and negative per HPI. Past Medical History Past Medical History: Hypertension, Sleep Apnea/CPAP/BIPAP Additional Past Medical History / Comment(s): brain cancer, KIDNEY STONES, multiple sclerosis History of Any Multi-Drug Resistant Organisms: None Reported Past Surgical History: Hernia Repair, Orthopedic Surgery Additional Past Surgical History / Comment(s): brain surgery, , RT ARM ULNAR NERVE SX, X25 SHUNT PLACEMENT/REVISON SX, UMBILICAL HERNIA AND HIATL HERNIA, KATHERINE KNEE ARTHROSCOPIES,NECK FUSION HAS METAL PLATE C-5,C-6 Past Anesthesia/Blood Transfusion Reactions: No Reported Reaction Additional Past Anesthesia/Blood Transfusion Reaction / Comment(s): no hx blood transfusion Past Psychological History: Depression Smoking Status: Never smoker Past Alcohol Use History: Occasional Past Drug Use History: None Reported - Past Family History Mother Family Medical History: No Reported History Medications and Allergies Home Medications Medication Instructions Recorded Confirmed Type Baclofen Pump Continous Pump 1 dose SQ-PUMP CONTINUOUS 09/29/19 05/20/20 History Chlorthalidone 50 mg PO DAILY 09/29/19 05/20/20 History Cholecalciferol [Vitamin D3 (25 1,000 unit PO DAILY 09/29/19 05/20/20 History Mcg = 1000 Iu)] Dalfampridine [Dalfampridine ER] 10 mg PO Q12H 09/29/19 05/20/20 History Doxepin HCl [SINEquan] 75 mg PO HS 09/29/19 05/20/20 History Levothyroxine Sodium 25 mcg PO QAM 09/29/19 05/20/20 History Losartan Potassium 100 mg PO HS 09/29/19 05/20/20 History Vortioxetine Hydrobromide 20 mg PO QAM 09/29/19 05/20/20 History [Trintellix] LORazepam [Ativan] 0.5 mg PO BID PRN 05/20/20 05/20/20 History Pravastatin Sodium [Pravachol] 10 mg PO DAILY 05/20/20 05/20/20 History predniSONE See Taper PO DAILY 05/20/20 05/20/20 History Allergies Allergy/AdvReac Type Severity Reaction Status Date / Time cephalexin Allergy Unknown Unknown Verified 05/20/20 14:52 codeine Allergy Rash/Hives Verified 05/20/20 14:52 Penicillins Allergy Vomiting Verified 05/20/20 14:52 Sulfa (Sulfonamide Allergy Anaphylaxis Verified 05/20/20 14:52 Antibiotics) vancomycin Allergy Rash/Hives Verified 05/20/20 14:52 Physical Examination - Vital Signs Vital Signs: Vital Signs Temp Pulse Pulse Resp BP BP Pulse Ox 05/21/20 04:00 94 16 129/82 97 05/20/20 23:42 98.6 F 95 16 120/75 96 05/20/20 21:00 98.4 F 104 H 16 129/92 95 05/20/20 19:11 72 20 139/82 98 05/20/20 16:34 76 20 136/98 96 05/20/20 15:00 88 18 129/78 99 05/20/20 13:34 98.2 F 107 H 20 117/72 96 Intake and Output 05/20/20 05/21/20 05/21/20 22:59 06:59 14:59 Intake Total 240 Balance 240 Intake: Oral 240 Other: # Voids 1 1 # Bowel Movements 1 Weight 149.685 kg 148.7 kg GENERAL: The patient is lying in bed and is not in acute distress. CHEST: The heart rate is regular rate rhythm. No murmurs to auscultation. LUNG: Clear to auscultation bilaterally no wheezing noted throughout. Not labored breathing. ABDOMEN/GI: Bowel sounds present in all 4 quadrants. No tenderness to palpation throughout. NEUROLOGICAL: Higher mental function: The patient is awake, alert, oriented to self, place and time. Patient is following commands. No aphasia and no neglect. Cranial nerves: The pupils are round, equal and reactive to light and accommodation. Visual colon are full to confrontation throughout. Extraocular movement is intact and horizontal nystagmusn is seen looking to far right or left. Facial sensation is normal to touch throughout. The facial strength is normal throughout. Hearing is normal bilaterally to hand rub. Tongue is midline and moved [id number] without any difficulty. No dysarthria is noted. Shoulder shrug is normal bilaterally. Motor: The strength is 5 over 5 throughout. Normal tone and bulk. Cerebellum: Normal finger to nose bilaterally. Sensation: Sensation is normal to touch throughout. Reflexes (right/left): 2+ in upper but lower are 1+ throughout but patient was stiffening extremities while examining him. Plantars are downgoing bilaterally. Results AST 25 and ALTs 34. - Laboratory Findings CBC and BMP: 05/21/20 06:53 05/21/20 06:53 Abnormal Lab Findings: Abnormal Labs 05/20/20 05/20/20 05/20/20 13:55 13:55 13:55 RBC Lymphocytes # 0.2 L APTT 20.1 L Sodium 131 L Chloride 94 L Carbon Dioxide BUN 25 H Glucose 266 H Total Protein Triglycerides Cholesterol LDL Cholesterol, Calc HDL Cholesterol 05/21/20 05/21/20 06:53 06:53 RBC 4.04 L Lymphocytes # 0.2 L APTT Sodium 133 L Chloride 95 L Carbon Dioxide 34 H BUN 24 H Glucose 169 H Total Protein 5.9 L Triglycerides 393 H Cholesterol 253 H LDL Cholesterol, Calc 102 H HDL Cholesterol 72 H Assessment and Plan Assessment: This is a 50-year-old gentleman that presents to the emergency department on 05/20/2020 for 5-day history. Cephalgia Questionable right frontal subarachnoid hemorrhage that was ruled out by the CTA as well as the MRI the brain. Repeat CT of the head doesn't show any e volution. History of brain cancer (4th ventrilce) status post removal in 1991 with multiple status post shunt with revisions History of encephalomalacia at different regions (per MRI Brain white matter signal change as above involving the cerebellar and right posterior frontal lobe and bilateral occipital lobe consistent with multiple lacunar infarct and encephalomalacia. Cerebral atrophy. Significant inferior cerebellar encephalomalacia) History of neck fusion in C5-C6 History of multiple sclerosis on baclofen pump Dyslipidemia History of hypertension Morbid obesity Plan: In the ED the patient had an itch initial CT of the head which was reported as small focus of increased attenuation, possibly subarachnoid hemorrhage with some asymmetric density at the left cerebral peduncle. Was a bad changes. White matter demyelination. There is an addendum and it's reported as small focus of increased attenuation in the without cole toward the midline is a chronic finding and can be related to vascular malformation. MRI of the brain was ordered by the ED and is reported as extensive white matter signal change as above involving the cerebellar and right posterior frontal lobe and bilateral occipital lobe consistent with multiple lacunar infarct and encephalomalacia. Cerebral atrophy. Significant inferior cerebellar encephalomalacia. There is some right frontal lobe convexity meningeal and cortical enhancement that could relate to subacute small cortical infarct. No T1 9 noncontrast increased signal in the right frontal lobe to suggest hemorrhage. CTA of the head is reported as source of patient's subarachnoid hemorrhage is not evident. I ordered a repeat CT of the head for the today and it was done around 6ish am today and is reported as no significant interval change. Lipid panel triglyceride of 393, cholesterol is 253, LDLs 102 and HDL 72. I ordered a CTA of the neck only especially since the patient has a been feeling dizzy but that the dizziness has been going on for last 1-2 months wanted to rule out vertebral basilar insufficiency Aspirin 325 was started by the ED team. I stopped it escpecially to make sure there is no bleed on repeated images. Currently the patient is on the pravastatin 10 mg I stopped that and allow start the patient on the Lipitor 40 mg daily Patient had the carotid duplex in April 2020 by his neurologist and that was reported as normal. So there is no reason to repeat the the carotid duplex. I notified the patient that I would like to get a repeat CT of the head tomorrow to make sure there is no bleed or any evolution the changes. He stated that he would like to follow up with that his neurologist regarding a follow-up imaging if there is any questionable bleed. He is willing To stay for the CTA of the neck for today and if it's there is no abnormality would like to be discharged and that he would like to follow-up with his neurologist. Consider starting the patient outpatient on aspirin 81 mg for stroke prophylaxis but will defer to his neurologist especially with multiple encephalomalacia. Regarding starting the patient on aspirin patient had multiple encephalomalacia in the past which are not new and was never on any antiplatelets. I asked for the patient for repeat CT for tomorrow but he was said to have it done as an outpatient. If the there is truly know bleeding on the next repeated image such as tomorrow or down the line then I would recommend for the patient to be on aspirin 81 mg daily as a stroke prophylaxis. But we'll defer that workup to his neurologist as an outpatient. Upon discharge the patient to follow-up with his neurologist within 1 week (Dr. Castillo). The plan was discussed with the patient as well as his nurse Thank you for the consultation. UPDATE: CTA of the neck was reported as widely patent common and internal carotid arteries on both sides. Dominant left vertebral artery at. The V3 segment on the right vertebral artery becomes very difficult to visualize likely due to hypoplasia/diminutive caliber. Silas Marie MD Neuro-hopsitalist Time with Patient: Greater than 30
--- NOTE | 2020-05-21 11:33 | P.CNPUL ---
History of Present Illness Consult date: 05/21/20 Reason for consult: chest pain History of present illness: 50-year-old male patient, hospitalized because of headache and some nonspecific discomfort over the anterior neck upper chest area which she described as chest tightness to the was consulted for the second reason. In terms of his headaches, there was a concern that the patient was having a bleed. The patient has a history of brain cancer that was resected back in 1981 and the patient has had multiple shunts and revisions in addition to that he has hypertension, hyperlipidemia, multiple sclerosis and the patient has a baclofen pump under the care of Dr. Castillo on outpatient basis. He is also undergone a cervical spine fusion at the level of C5-C6. Yesterday's headache was around 5 out of 10 and he denies having any nausea or emesis of diplopia. He reported to have no sig nificant focal neurological deficit. No cough. No sputum production. No pleurisy. No hemoptysis. No aspiration. Chest x-ray showed some chronic apical pleural thickening. No other acute abnormalities otherwise for now. He is known to have obstructive sleep apnea. Is a CPAP machine at home and he was diagnosed having JASON by Dr. Sorensen his previous neurologist in [place] in [place]. He has no falls. No double vision. He has chronic pain and numbness and tingling in lower extremities bilaterally. During his hospital stay, the patient's hemodynamically parameters were all within normal limits. CAT scan of the head showed a small focus of increased attenuation, possible subarachnoid hemorrhage with some asymmetric density in the left cerebral peduncle. There was also white matter changes. It was also reported that the patient had a small focus of increased attenuation within the cole hours the midline could be related to vascular malformation. MRI of the brain was ordered in the EEG and the patient was found to have extensive white matter signal change as well as involvement of the cerebellar and the right posterior frontal lobe and the bilateral occipital lobe consistent with multiple lacunar infarcts and encephalomalacia. There was cerebral atrophy. Significant amount of inferior cerebellar encephalomalacia was also present. There was also some right frontal convexity meningeal and cortical enhancement that could potentially represent subacute small cortical infarct. CT head had was done and no source of any the hemorrhage identified. Otherwise it was at 7.2. LDL cholesterol is 102. This morning, the patient has no respiratory difficulties. No cough sputum production chest tightness or wheezing. Has previous history of childhood asthma which she has recovered and the patient is not utilizing any form of respiratory medications are diminished. Review of Systems Constitutional: Reports as per HPI Eyes: bilateral blurred vision, bilateral decreased vision, denies as per HPI, denies bulging eye, denies diplopia, denies discharge, denies dry eye, denies irritation, denies itching, denies pain, denies photophobia, denies loss of peripheral vision, denies loss of vision, denies tunnel vision/blind spots Ears: deny: decreased hearing, ear discharge, earache, tinnitus Ears, nose, mouth and throat: Denies headache, Denies sore throat Breasts: absent: as per HPI, gynecomastia Cardiovascular: Reports decreased exercise tolerance, Reports dyspnea on exertion Respiratory: Reports as per HPI, Reports sleep apnea Gastrointestinal: Reports as per HPI Genitourinary: Reports as per HPI, Reports urinary retention Musculoskeletal: Reports as per HPI, Reports gait dysfunction Musculoskeletal: absent: ankle pain, ankle stiffness, ankle swelling Integumentary: Reports as per HPI Neurological: Reports as per HPI, Reports balance difficulties, Reports gait dysfunction, Reports headaches, Reports tingling, Reports transient paralysis, Reports weakness, Reports visual changes Psychiatric: Reports as per HPI Endocrine: Reports as per HPI Hematologic/Lymphatic: Reports as per HPI Allergic/Immunologic: Reports as per HPI Past Medical History Past Medical History: Hypertension, Sleep Apnea/CPAP/BIPAP Additional Past Medical History / Comment(s): brain cancer, KIDNEY STONES, multiple sclerosis History of Any Multi-Drug Resistant Organisms: None Reported Past Surgical History: Hernia Repair, Orthopedic Surgery Additional Past Surgical History / Comment(s): brain surgery, , RT ARM ULNAR NERVE SX, X25 SHUNT PLACEMENT/REVISON SX, UMBILICAL HERNIA AND HIATL HERNIA, KATHERINE KNEE ARTHROSCOPIES,NECK FUSION HAS METAL PLATE C-5,C-6 Past Anesthesia/Blood Transfusion Reactions: No Reported Reaction Additional Past Anesthesia/Blood Transfusion Reaction / Comment(s): no hx blood transfusion Past Psychological History: Depression Smoking Status: Never smoker Past Alcohol Use History: Occasional Past Drug Use History: None Reported - Past Family History Mother Family Medical History: No Reported History Medications and Allergies Home Medications Medication Instructions Recorded Confirmed Type Baclofen Pump Continous Pump 1 dose SQ-PUMP CONTINUOUS 09/29/19 05/20/20 History Chlorthalidone 50 mg PO DAILY 09/29/19 05/20/20 History Cholecalciferol [Vitamin D3 (25 1,000 unit PO DAILY 09/29/19 05/20/20 History Mcg = 1000 Iu)] Dalfampridine [Dalfampridine ER] 10 mg PO Q12H 09/29/19 05/20/20 History Doxepin HCl [SINEquan] 75 mg PO HS 09/29/19 05/20/20 History Levothyroxine Sodium 25 mcg PO QAM 09/29/19 05/20/20 History Losartan Potassium 100 mg PO HS 09/29/19 05/20/20 History Vortioxetine Hydrobromide 20 mg PO QAM 09/29/19 05/20/20 History [Trintellix] LORazepam [Ativan] 0.5 mg PO BID PRN 05/20/20 05/20/20 History Pravastatin Sodium [Pravachol] 10 mg PO DAILY 05/20/20 05/20/20 History predniSONE See Taper PO DAILY 05/20/20 05/20/20 History Allergies Allergy/AdvReac Type Severity Reaction Status Date / Time cephalexin Allergy Unknown Unknown Verified 05/20/20 14:52 codeine Allergy Rash/Hives Verified 05/20/20 14:52 Penicillins Allergy Vomiting Verified 05/20/20 14:52 Sulfa (Sulfonamide Allergy Anaphylaxis Verified 05/20/20 14:52 Antibiotics) vancomycin Allergy Rash/Hives Verified 05/20/20 14:52 Physical Exam Vitals: Vital Signs Temp Pulse Pulse Resp BP BP Pulse Ox 05/21/20 08:00 98.2 F 94 16 127/81 97 05/21/20 04:00 94 16 129/82 97 05/20/20 23:42 98.6 F 95 16 120/75 96 05/20/20 21:00 98.4 F 104 H 16 129/92 95 05/20/20 19:11 72 20 139/82 98 05/20/20 16:34 76 20 136/98 96 05/20/20 15:00 88 18 129/78 99 05/20/20 13:34 98.2 F 107 H 20 117/72 96 Intake and Output 05/20/20 05/21/20 05/21/20 22:59 06:59 14:59 Intake Total 240 Balance 240 Intake: Oral 240 Other: # Voids 1 1 # Bowel Movements 1 Weight 149.685 kg 148.7 kg The patient appeared well nourished and normally developed. Vital signs as documented. Head exam is unremarkable. No scleral icterus or corneal arcus noted. Neck is without jugular venous distension, thyromegaly, or carotid bruits. Carotid upstrokes are brisk bilaterally. Patient has significant cardiomegaly and a history of cellulitis and the patient is a Mallampati class IV. Lungs are clear to auscultation and percussion. Cardiac exam reveals the PMI to be normally sized and situated. Rhythm is regular. First and second heart sounds normal. No murmurs, rubs or gallops. Abdominal exam reveals normal bowel sounds, no masses, no organomegaly and no aortic enlargement. Extremities are nonedematous and both femoral and pedal pulses are normal. Higher mental function: The patient is awake, alert, oriented to self, place and time. Patient is following commands. No aphasia and no neglect. Cranial nerves: The pupils are round, equal and reactive to light and accommodation. Visual colon are full to confrontation throughout. Extraocular movement is intact and horizontal nystagmusn is seen looking to far right or left. Facial sensation is normal to touch throughout. The facial strength is normal throughout. Hearing is normal bilaterally to hand rub. Tongue is midline and moved [id number] without any difficulty. No dysarthria is noted. Shoulder shrug is normal bilaterally. Motor: The strength is 5 over 5 throughout. Normal tone and bulk. Cerebellum: Normal finger to nose bilaterally. Sensation: Sensation is normal to touch throughout. Reflexes (right/left): 2+ in upper but lower are 1+ throughout but patient was stiffening extremities while examining him. Plantars are downgoing bilaterally. Results - Laboratory Findings CBC and BMP: 05/21/20 06:53 05/21/20 06:53 PT/INR, D-dimer PT 9.5 sec (9.0-12.0) 05/20/20 13:55 INR 0.9 (<1.2) 05/20/20 13:55 Abnormal lab findings: Abnormal Labs 05/20/20 05/20/20 05/20/20 13:55 13:55 13:55 RBC Lymphocytes # 0.2 L APTT 20.1 L Sodium 131 L Chloride 94 L Carbon Dioxide BUN 25 H Glucose 266 H Total Protein Triglycerides Cholesterol LDL Cholesterol, Calc HDL Cholesterol 05/21/20 05/21/20 06:53 06:53 RBC 4.04 L Lymphocytes # 0.2 L APTT Sodium 133 L Chloride 95 L Carbon Dioxide 34 H BUN 24 H Glucose 169 H Total Protein 5.9 L Triglycerides 393 H Cholesterol 253 H LDL Cholesterol, Calc 102 H HDL Cholesterol 72 H - Diagnostic Findings Chest x-ray: image reviewed Assessment and Plan Plan: 1 headache on that investigation. The patient has questionable right frontal subarachnoid hemorrhage that was ruled out by CTA and MRI. Neurology is on the case 2 nonspecific tightness of the neck/Chest area. Chest x-rays clear. The patient is on room air oxygen. Currently asymptomatic 3 mild intermittent bronchial asthma, currently inactive in stable 4 obstructive sleep apnea was reviewed with CPAP on outpatient basis 5 history of brain cancer involving fourth ventricle with a previous surgical removal in 1981 6 multiple sclerosis 7 encephalomalacia of the different parts of the brain in addition to multiple lacunar infarcts and cerebral atrophy, please refer to the MRI of the brain 8 history of cervical spine fusion C5-C6 9 history of multiple sclerosis and the patient has a echo from pump in place 10 hypertension 11 hyperlipidemia 12 obesity with a BMI 37.[address] of the neck is being ordered to rule out any vascular insufficiency. This will be reviewed once the results are available. I asked the patient to bring in his CPAP machine from home. Check and make adjustments if needed No need for any maintenance respiratory medications for now. Abdomen is currently inactive in stable Neurology follow-up regarding the headache and the possibility of a questionable hemorrhage which turned out to be nonexistent on MRI and a CT of the head Will follow
[2020-05-21 14:09] VITALS: PULSE 96
--- NOTE | 2020-05-21 15:51 | CT ---
EXAMINATION TYPE: CT angio neck DATE OF EXAM: 05/21/2020 COMPARISON: Doppler ultrasound 04/23/2020 HISTORY: 50-year-old male dizziness TECHNIQUE: Contiguous axial scanning of the neck performed with IV Contrast, patient injected with 65 mL of Isovue 370. Coronal/sagittal MIP reconstructions performed. 3-D reconstructions generated on a dedicated workstation. CT DLP: 1001.4 mGycm Automated exposure control for dose reduction was used. FINDINGS: Conventional arch is a branching anatomy. The left vertebral artery is dominant. The V3 segment right vertebral artery becomes difficult to vis ualize likely due to diminutive caliber. Otherwise, both vertebral arteries are patent throughout the ir course. The right common and internal carotid arteries are patent. The proximal right ICA takes a retropharyn geal course. The left common and internal carotid arteries are patent. Post surgical change of prior occipital craniectomy. Parenchymal calcifications within the bilateral cerebellar hemispheres and encephalomalacia within the left cerebellar hemisphere. IMPRESSION: 1. WIDELY PATENT COMMON AND INTERNAL CAROTID ARTERIES ON BOTH SIDES. 2. DOMINANT LEFT VERTEBRAL ARTERY. THE V3 SEGMENT OF THE RIGHT VERTEBRAL ARTERY BECOMES VERY DIFFICUL T TO VISUALIZE LIKELY DUE TO HYPOPLASIA/DIMINUTIVE CALIBER.
[2020-05-21 16:42] VITALS: BP 129/80
--- NOTE | 2020-05-21 17:29 | P.DS ---
Providers Date of admission: 05/20/20 17:31 Expected date of discharge: 05/21/20 Attending physician: Ricky Diane Consults: 05/20/20 16:32 Consult Physician Urgent Consulting Provider: Silas Marie Consult Reason/Comments: Possible subarachnoid hemorrhage Do you want consulting provider notified?: Yes 05/20/20 18:30 Consult Physician Routine Consulting Provider: Silas Marie Consult Reason/Comments: Abnormal computed tomography scan Do you want consulting provider notified?: Yes 05/20/20 18:51 Consult Physician Routine Consulting Provider: Sarah Palmer Consult Reason/Comments: Chest tightness history of asthma Do you want consulting provider notified?: Yes Primary care physician: Rickyleon Diane [facility] Course: Diagnosis on discharge: 1. Episodes of headaches that started 3 days ago, with computed tomography scan of the brain revealing possible subarachnoid hemorrhage, patient denies any history of head trauma , he is not on any blood thinners , neurology consultation was requested awaiting MRI of the brain 2. Chest tightness cause is unclear, Will consult pulmonary chest x-ray is revealing evidence of biapical pleural thickening which is new since last exam. 3. Underlying history of hypertension 4. Underlying history of obstructive sleep apnea 5. Remote history of brain tumor resection in 1991 6. Underlying history of hypothyroidism 7. Underlying history of multiple sclerosis patient has a baclofen pump he follows with Dr. Oropeza as outpatient Hospital course: Campbell De Los Santos is a 50-year-old male who presented to [facility] emergency room with a chief complaint of chest tightness and headache he was evaluated in the emergency room vital examination on presentation revealed a temperature of 98.2 pulse 107 respiration 20 blood pressure 117/72 pulse ox 96% on room air his laboratory data revealed a white blood count of 7.2 hemoglobin 14.8 platelet count 197 sodium 131 potassium 4.1 chloride 94 CO2 27 BUN 25 creatinine 0.86 glucose level was elevated at 266 troponin level was normal at 0.012 chest x-ray was done in the emergency room and revealed biapical pleural thickening otherwise no acute abnormality, EKG was done in the emergency room and revealed normal sinus rhythm with nonspecific ST and T-wave abnormality, computed tomography scan of the brain revealed small focus of increased attenuation possibly related to subarachnoid hemorrhage with asymmetric density at the left cerebral peduncle and postoperative changes related to remote brain surgery and evidence of white matter demyelination. CT angiogram of the brain was done, the source of patient's subarachnoid hemorrhage was not evident. Dr. Chapa in the emergency room contacted neurosurgery at a tertiary care center who advised that patient does not need to be transferred, patient was admitted to the hospital MRI of the brain was ordered and neurology consultation was requested. Patient has a known history of multiple sclerosis, patient has a baclofen pump , he is followed by neurologist Dr. Castillo as outpatient , history of hypertension, history of obstructive sleep apnea, history of anxiety disorder, he also has a known history of brain tumor that was removed in 1991. On 05/21/2020 patient was seen and examined on the medical floor he is alert and oriented 3 in no apparent distress there is no fever or chills no headache or dizziness no chest pain no shortness of breath no cough no nausea or vomiting no abdominal pain no diarrhea no blood in the stools no burning with urination no frequency or urgency and no hematuria. MRI of the brain was done and did not reveal any evidence of subarachnoid bleeding , patient was evaluated by neurology Dr. Silas Marie, he was also evaluated by pulmonary in regard to history of asthma and obstructive sleep apnea, patient was cleared for discharge, he will be discharged home today, he will follow-up with Dr. Castillo and Dr. Palmer outpatient. During this admission cholesterol was high Pravachol was discontinued and patient was started on Lipitor 40 mg by mouth daily Plan - Discharge Summary Discharge Rx Participant: No New Discharge Prescriptions: New Atorvastatin [Lipitor] 40 mg PO HS tab Continue Dalfampridine [Dalfampridine ER] 10 mg PO Q12H Vortioxetine Hydrobromide [Trintellix] 20 mg PO QAM Levothyroxine Sodium 25 mcg PO QAM Doxepin HCl [SINEquan] 75 mg PO HS Cholecalciferol [Vitamin D3 (25 Mcg = 1000 Iu)] 1,000 unit PO DAILY Losartan Potassium 100 mg PO HS Chlorthalidone 50 mg PO DAILY Baclofen Pump Continous Pump 1 dose SQ-PUMP CONTINUOUS LORazepam [Ativan] 0.5 mg PO BID PRN PRN Reason: Anxiety predniSONE See Taper PO DAILY Discontinued Pravastatin Sodium [Pravachol] 10 mg PO DAILY Discharge Medication List Baclofen Pump Continous Pump 1 dose SQ-PUMP CONTINUOUS 09/29/19 [History] Chlorthalidone 50 mg PO DAILY 09/29/19 [History] Cholecalciferol [Vitamin D3 (25 Mcg = 1000 Iu)] 1,000 unit PO DAILY 09/29/19 [History] Dalfampridine [Dalfampridine ER] 10 mg PO Q12H 09/29/19 [History] Doxepin HCl [SINEquan] 75 mg PO HS 09/29/19 [History] Levothyroxine Sodium 25 mcg PO QAM 09/29/19 [History] Losartan Potassium 100 mg PO HS 09/29/19 [History] Vortioxetine Hydrobromide [Trintellix] 20 mg PO QAM 09/29/19 [History] LORazepam [Ativan] 0.5 mg PO BID PRN 05/20/20 [History] predniSONE See Taper PO DAILY 05/20/20 [History] Atorvastatin [Lipitor] 40 mg PO HS tab 05/21/20 [Rx] Follow up Appointment(s)/Referral(s): Ricky Diane MD [Primary Care Provider] - 1-2 days
[2020-05-21] MEDS ORDERED: ATORVASTATIN 40 MG TAB PO SCH (21:00)
== END 2020-05-21 17:59 | disposition home or self-care (01) | DRG 64 ==
LOC: EC 13:32 → 3SCARD 17:31
PROVIDERS: ADMIT Internal Medicine; ATTEND Internal Medicine
DX: I60.9 Nontraumatic subarachnoid hemorrhage, unspecified (principal); I63.81 Other cerebral infarction due to occlusion or stenosis of small artery; G47.33 Obstructive sleep apnea (adult) (pediatric); G89.29 Other chronic pain; G93.89 Other specified disorders of brain; I10 Essential (primary) hypertension; I61.1 Nontraumatic intracerebral hemorrhage in hemisphere, cortical; Q27.9 Congenital malformation of peripheral vascular system, unspecified; J45.909 Unspecified asthma, uncomplicated; E03.9 Hypothyroidism, unspecified; E66.01 Morbid (severe) obesity due to excess calories; E78.00 Pure hypercholesterolemia, unspecified; E78.5 Hyperlipidemia, unspecified; F32.9 Major depressive disorder, single episode, unspecified; G31.9 Degenerative disease of nervous system, unspecified; G35 Multiple sclerosis; Z79.899 Other long term (current) drug therapy; Z85.841 Personal history of malignant neoplasm of brain; Z86.73 Personal history of transient ischemic attack (TIA), and cerebral infarction without residual deficits; Z87.09 Personal history of other diseases of the respiratory system; Z87.442 Personal history of urinary calculi; Z96.89 Presence of other specified functional implants; Z98.1 Arthrodesis status; F41.8 Other specified anxiety disorders; Z99.89 Dependence on other enabling machines and devices; Z68.37 Body mass index [BMI] 37.0-37.9, adult; Z88.1 Allergy status to other antibiotic agents; Z88.5 Allergy status to narcotic agent; Z88.0 Allergy status to penicillin; Z88.2 Allergy status to sulfonamides; Z79.890 Hormone replacement therapy; Z79.52 Long term (current) use of systemic steroids
CPT/HCPCS: 36415; 70450; 70496; 70498; 70553; 71046; 80053; 80061; 83735; 84484; 85025; 85610; 85730; 87635; 93005; 99285

== ENCOUNTER → 2020-07-23 | Outpatient (CLI) | payer MEDICARE, OTHER ==
[2020-07-23 17:09] LABS: HCT 30.9 % (39.6-50.0); HGB 10.3 g/dL (13.0-17.0); MCH 36.1 pg (27.0-32.0); MCHC 33.3 g/dL (32.0-37.0); MCV 108.4 fL (80.0-97.0); Platelet Count 274 X 10*3/uL (140-440); RBC 2.85 X 10*6/uL (4.40-5.60); RDW 18.1 % (11.5-14.5)
[2020-07-23 18:17] LABS: Basophils # (A) 0.05 X 10*3/uL (0.00-0.10); Basophils % (A) 0.6 %; Eosinophils # (A) 0.19 X 10*3/uL (0.04-0.35); Eosinophils % (A) 2.4 %; Lymphocytes # (A) 0.44 X 10*3/uL (0.90-5.00); Lymphocytes % (A) 5.5 %; Monocytes # (A) 0.68 X 10*3/uL (0.20-1.00); Monocytes % (A) 8.5 %; Neutrophils # (A) 6.58 X 10*3/uL (1.80-7.70); Neutrophils % (A) 82.2 %
[2020-07-23 18:18] LABS: Macrocytosis (M) 2+
[2020-07-23 21:40] LABS: Hemoglobin A1C 5.9 % (4.0-6.0)
[2020-07-24 02:24] LABS: T4, Free (Free Thyroxine) 1.1 ng/dL (0.80-1.80)
[2020-07-24 02:27] LABS: Folate, Serum 3.3 ng/mL
[2020-07-24 04:05] LABS: African American GFR (CKD) 54.1 (60.0-200.0); Albumin 4.7 g/dL (3.80-4.90); Albumin/Globulin Ratio 2.35 (1.60-3.17); Anion Gap 16.3 mmol/L (4.00-12.00); BUN/Creat Ratio 16.47 Ratio (12.00-20.00); Calcium 9.9 mg/dL (8.7-10.3); Carbon Dioxide 24.7 mmol/L (21.6-31.8); Non-African American GFR(CKD) 46.6 (60.0-200.0); Potassium 3.6 mmol/L (3.5-5.5); Total Protein 6.7 g/dL (6.2-8.2)
[2020-07-24 05:23] LABS: Hepatitis B Core IgM Non-Reactive (Non-Reactive); Hepatitis B Surface AB- Quant 3.5 mIU/mL; Hepatitis B Surface Antibody Non-Reactive (Non-Reactive); Hepatitis B Surface Antigen Non-Reactive (Non-Reactive)
[2020-07-24 13:21] LABS: Vit B1(Thiamine) 43 ug/L (38-122)
== END | disposition home or self-care (01) ==
LOC: LABWHC1 08:42
PROVIDERS: ATTEND Psychiatry & Neurology Pain Medicine
DX: G35 Multiple sclerosis (principal)
CPT/HCPCS: 36415; 80053; 82306; 82607; 82746; 83036; 84207; 84425; 84439; 84443; 84481; 84591; 85025; 86704; 86705; 86706; 86787; 87340; 87390

== ENCOUNTER → 2020-08-05 | Outpatient (CLI) | payer MEDICARE, OTHER ==
--- NOTE | 2020-08-05 15:12 | XR ---
Left ankle and left foot HISTORY: Trauma and pain 3 views of left ankle, 3 views left foot Soft tissue swelling is present. Bone mineralization, joint spaces and alignment are maintained. Ther e is a plantar calcaneal spur. Degenerative changes are present at the intertarsal joints, tarsometat arsal joints. Cortical thickening of the fifth metatarsal may be due to remote fracture and healing. Slight lateral subluxation noted at the distal left third digit, distal interphalangeal joint. Degene rative change present at the first metatarsophalangeal joint. Small ossific densities at the anterior tibiotalar joint appear well-corticated and not felt likely to be acute. IMPRESSION: Osteoarthritic changes. Soft tissue swelling. Additional findings above. No acute fractur e or dislocation is suspected, small chip fracture or loose body anterior tibiotalar joint.
== END | disposition home or self-care (01) ==
LOC: RADXRMAIN 13:57
PROVIDERS: ATTEND Internal Medicine
DX: M19.072 Primary osteoarthritis, left ankle and foot (principal)

== ENCOUNTER → 2020-09-17 | Outpatient (CLI) | payer MEDICARE, OTHER ==
--- NOTE | 2020-09-17 17:26 | PN ---
PROGRESS NOTE Campbell is doing extremely well he. He is known to have obstructive sleep apnea. The patient has been utilizing his CPAP machine for several years. His AHI at baseline at 26. The patient is on a CPAP pressure of 12 cm of water. I did a compliancy check on this patient. The patient has been using his machine 100% of the time without any major issues. His compliancy on his CPAP machine is revealing an average use of 8.5 hours of CPAP use per night and his leak is in order of 25 L/minute and his AHI is down to 1.2. No hypersomnia or sleepiness during the day. [place] score is at 12. Hemodynamically stable. No hypertension. No tachycardia. No palpitations. No other significant cardiopulmonary events over the past year. REVIEW OF SYSTEMS: 12-point review of system was done. Positive findings are mentioned in history of present illness. BP is 115/62, pulse 88, respirations 16, temperature 96.5, height is 64, weight is 227, BMI 39.2. GENERAL APPEARANCE: Obese, calm, comfortable. HEAD is atraumatic, normocephalic. NECK: Supple. No JVD. No goiter or neck mass. Mallampati class 4. LUNGS: Clear to auscultation. HEART: Heart sounds are regular rate and rhythm. Normal S1, S2. No S3, S4. No murmurs. ABDOMEN: Soft, nontender. No organomegaly. EXTREMITIES: No edema. No cyanosis or clubbing. NEUROLOGIC: Awake and alert. There is no focal neurological deficits. IMPRESSION: 1. Obstructive sleep apnea, moderate severe AHI of 26, currently on CPAP pressure of 12. 2. Obesity, BMI of 39.2. 3. Hypersomnia, recovered. Chicago score is down to 2. 4. History of multiple sclerosis. 5. Chronic anxiety/depression. 6. Hypertension. 7. Chronic back pain. PLAN: 1. Continue CPAP therapy at same level of pressure. 2. I switched him to an Air Fit N30I nasal mask instead of the DreamWear. 3. Implement good sleep hygiene measures. 4. Weight loss. 5. See me back in a year's time in followup. MMODL / IJN: [id number] /
== END ==
LOC: SLEEP 16:25
PROVIDERS: ATTEND Internal Medicine Critical Care Medicine
DX: G47.33 Obstructive sleep apnea (adult) (pediatric) (principal); E66.9 Obesity, unspecified; M54.9 Dorsalgia, unspecified; F32.9 Major depressive disorder, single episode, unspecified; F41.9 Anxiety disorder, unspecified; G89.29 Other chronic pain; I10 Essential (primary) hypertension; Z68.39 Body mass index [BMI] 39.0-39.9, adult; Z86.69 Personal history of other diseases of the nervous system and sense organs; Z99.81 Dependence on supplemental oxygen; Z88.0 Allergy status to penicillin; Z88.1 Allergy status to other antibiotic agents; Z88.5 Allergy status to narcotic agent; Z88.2 Allergy status to sulfonamides

== ENCOUNTER → 2021-01-10 | Outpatient (CLI) | payer MEDICARE, OTHER ==
[2021-01-10 22:54] LABS: Basophils # (A) 0.06 X 10*3/uL (0.00-0.10); Basophils % (A) 0.8 %; Eosinophils # (A) 0.13 X 10*3/uL (0.04-0.35); Eosinophils % (A) 1.8 %; HCT 41.1 % (39.6-50.0); HGB 13.8 g/dL (13.0-17.0); Lymphocytes # (A) 0.64 X 10*3/uL (0.90-5.00); Lymphocytes % (A) 8.6 %; MCH 29.7 pg (27.0-32.0); MCHC 33.6 g/dL (32.0-37.0); MCV 88.6 fL (80.0-97.0); Mean Platelet Volume 9.8 fL (9.5-12.2); Monocytes # (A) 0.59 X 10*3/uL (0.20-1.00); Neutrophils # (A) 5.95 X 10*3/uL (1.80-7.70); Neutrophils % (A) 80.4 %; Platelet Count 261 X 10*3/uL (140-440); RBC 4.64 X 10*6/uL (4.40-5.60); RDW 13.7 % (11.5-14.5)
[2021-01-11 05:20] LABS: Hepatitis B Core IgM Nonreactive (Nonreactive); Hepatitis B Surface AB- Quant 3.5 mIU/mL; Hepatitis B Surface Antibody Nonreactive (Nonreactive); Hepatitis B Surface Antigen Nonreactive (Nonreactive)
[2021-01-11 05:22] LABS: African American GFR (CKD) 102.7 (60.0-200.0); Albumin 4.6 g/dL (3.8-4.9); Albumin/Globulin Ratio 2.3 (1.60-3.17); Anion Gap 13.1 mmol/L (4.00-12.00); BUN/Creat Ratio 15.4 Ratio (12.00-20.00); Blood Urea Nitrogen 15.4 mg/dL (9.0-27.0); Calcium 9.9 mg/dL (8.7-10.3); Carbon Dioxide 24.9 mmol/L (21.6-31.8); Folate, Serum 4.3 ng/mL (4.40-31.00); Non-African American GFR(CKD) 88.6 (60.0-200.0); Potassium 3.9 mmol/L (3.5-5.5); T4, Free (Free Thyroxine) 0.99 ng/dL (0.800-1.800); Total Bilirubin 0.7 mg/dL (0.30-1.20); Total Protein 6.6 g/dL (6.2-8.2)
[2021-01-13 05:56] LABS: Varicella IgM Antibody 0.28 INDEX (<=0.90)
== END | disposition home or self-care (01) ==
LOC: LABWHC1 14:07
PROVIDERS: ATTEND Psychiatry & Neurology Pain Medicine
DX: M89.8X9 Other specified disorders of bone, unspecified site (principal); G35 Multiple sclerosis
CPT/HCPCS: 36415; 80053; 82306; 82533; 82607; 82746; 83036; 84207; 84425; 84439; 84443; 84481; 85025; 86704; 86705; 86706; 86787; 87340; 87390

== ENCOUNTER → 2021-11-04 | Outpatient (CLI) | payer MEDICARE, OTHER ==
--- NOTE | 2021-11-04 13:48 | CT ---
EXAMINATION TYPE: CT sinus wo con DATE OF EXAM: 11/04/2021 COMPARISON: CT brain 05/21/2020 HISTORY: Chronic sinusitis. Loss of smell. Hx MS. CT DLP: 529.10 mGycm. Automated Exposure Control for Dose Reduction was Utilized. TECHNIQUE: CT scan of the sinuses is performed without contrast, axial images are obtained, coronal r eformatted images are also reviewed. FINDINGS: The paranasal sinuses including the frontal, ethmoid, sphenoid, and maxillary sinuses bila terally are well-aerated without abnormal opacification. There is a tiny 7 mm mucous retention cyst or polyp along the inferior right maxillary. Slight nasal septal deviation to the left. The ostiomeat al complex is patent bilaterally on the coronal images. Visualized portion of mastoid air cells show no abnormal opacification. The globes are intact bilate rally. Pontine calcification again noted as well as findings suggestive mild ventricular prominence and low attenuation in the white matter likely on the basis of remote white matter ischemia. Postsurg ical changes involving the occiput is not included in the [id number]. IMPRESSION: 1. Single tiny mucous retention cyst or polyp measuring approximately 7 mm inferior right maxillary a ntrum. No other CT evidence of sinusitis. 2. Mild nasal septal deviation. 3. Chronic intracranial findings as discussed above.
== END | disposition home or self-care (01) ==
LOC: RADCTMAIN 12:59
PROVIDERS: ATTEND Otolaryngology
DX: J34.2 Deviated nasal septum (principal); J32.9 Chronic sinusitis, unspecified
CPT/HCPCS: 70486

== ENCOUNTER → 2022-03-31 | Outpatient (CLI) | payer MEDICARE, OTHER ==
--- NOTE | 2022-03-31 17:51 | US ---
EXAMINATION TYPE: US kidneys/renal and bladder DATE OF EXAM: 03/31/2022 COMPARISON: NONE CLINICAL HISTORY: R10.9 LEFT FLANK PAIN. Pain EXAM MEASUREMENTS: Right Kidney: 11.8 x 5.7 x 4.8 cm Left Kidney: 12.3 x 6.0 x 4.5 cm Right Kidney: No hydronephrosis or masses seen Left Kidney: No hydronephrosis or masses seen Bladder: wnl Bilateral Jets seen: Yes There is no evidence for hydronephrosis at this point in time. No nephrolithiasis is seen. No baljit s are identified. The urinary bladder is anechoic. Bilateral ureteral jets are seen. IMPRESSION: No evidence for obstructive uropathy.
== END | disposition home or self-care (01) ==
LOC: RADUSWWP 14:57
PROVIDERS: ATTEND Internal Medicine
DX: R10.9 Unspecified abdominal pain (principal)
CPT/HCPCS: 76770

== ENCOUNTER 2022-09-15 08:41 | Emergency (ER) | payer MEDICARE, OTHER ==
[2022-09-15] MEDS ORDERED: KETOROLAC 15 MG/ML 1 ML VIAL IVP STA (09:17)
[2022-09-15] MEDS ORDERED: SODIUM CHLORIDE 0.9% 2,000 ML IV STA (09:17)
--- NOTE | 2022-09-15 09:27 | ED ---
Abdominal Pain HPI - General Chief Complaint: Abdominal Pain Stated Complaint: Upper Abd Pain Time Seen by Provider: 09/15/22 09:03 Source: patient, RN notes reviewed Mode of arrival: ambulatory Limitations: no limitations - History of Present Illness Initial Comments: Patient is a 52 year old male presenting to the ER with a chief complaint of mid abdominal pain. Patient was seen at urgent care before arriving to the ER. Patient reports the pain has been on going for a little bit but worsened last night. He describes it as an intermittent 7/10 sharp stabbing pain with no known triggers. He states laying flat helps. The patient has taken a laxative with no relief. He endorses associated nausea but denies vomiting, diarrhea, constipation, urinary symptoms, melena, or bright red blood. Denies prior abdominal surgeries. Patient has a pain pump in his LLQ. Patient also states he was short of breath this am and feels a tightness in his chest. Denies exertional dyspnea or orthopnea. Denies cardiac history. Patient also reports he is recovering from a shingles outbreak earlier this month. - Related Data Home Medications Medication Instructions Recorded Confirmed Chlorthalidone 50 mg PO DAILY 09/29/19 09/15/22 Levothyroxine Sodium 25 mcg PO QAM 09/29/19 09/15/22 Vortioxetine Hydrobromide 20 mg PO QAM 09/29/19 09/15/22 [Trintellix] ARIPiprazole [Abilify] 2 mg PO DAILY 09/15/22 09/15/22 Losartan [Cozaar] 50 mg PO DAILY 09/15/22 09/15/22 busPIRone HCl [Buspar] 10 mg PO BID 09/15/22 09/15/22 polyethylene glycoL 3350 [Miralax] 17 gm PO DAILY PRN 09/15/22 09/15/22 Previous Rx's Medication Instructions Recorded Omeprazole [PriLOSEC] 40 mg PO DAILY #14 cap 09/15/22 Allergies Allergy/AdvReac Type Severity Reaction Status Date / Time codeine Allergy Rash/Hives Verified 09/15/22 11:00 Sulfa (Sulfonamide Allergy Anaphylaxis Verified 09/15/22 11:00 Antibiotics) vancomycin Allergy Rash/Hives Verified 09/15/22 11:00 cephalexin AdvReac Unknown Nausea & Verified 09/15/22 11:00 Vomiting Penicillins AdvReac Nausea & Verified 09/15/22 11:00 Vomiting Review of Systems ROS Statement: Those systems with pertinent positive or pertinent negative responses have been documented in the HPI. ROS Other: All systems not noted in ROS Statement are negative. Past Medical History Past Medical History: Hypertension, Sleep Apnea/CPAP/BIPAP Additional Past Medical History / Comment(s): brain cancer, KIDNEY STONES, multiple sclerosis History of Any Multi-Drug Resistant Organisms: None Reported Past Surgical History: Hernia Repair, Orthopedic Surgery Additional Past Surgical History / Comment(s): brain surgery, , RT ARM ULNAR NERVE SX, X25 SHUNT PLACEMENT/REVISON SX, UMBILICAL HERNIA AND HIATL HERNIA, KATHERINE KNEE ARTHROSCOPIES,NECK FUSION HAS METAL PLATE C-5,C-6 Past Anesthesia/Blood Transfusion Reactions: No Reported Reaction Additional Past Anesthesia/Blood Transfusion Reaction / Comment(s): no hx blood transfusion Past Psychological History: Depression Smoking Status: Never smoker Past Alcohol Use History: Occasional Past Drug Use History: None Reported - Past Family History Mother Family Medical History: No Reported History General Exam Limitations: no limitations General appearance: alert, in no apparent distress Respiratory exam: Present: normal lung sounds bilaterally. Absent: respiratory distress, wheezes, rales, rhonchi, stridor Cardiovascular Exam: Present: regular rate, normal rhythm, normal heart sounds. Absent: systolic murmur, diastolic murmur, rubs, gallop, clicks GI/Abdominal exam: Present: soft, tenderness (superior to umblicus tenderness to palpitation; healing erythematous shingles rash noted in RUQ; pain pump in LLQ), normal bowel sounds Extremities exam: Present: normal inspection, full ROM, normal capillary refill. Absent: tenderness, pedal edema, joint swelling, calf tenderness Back exam: Present: other (healing shingles rash right mid back ) Neurological exam: Present: alert, oriented X3, CN II-XII intact Skin exam: Present: warm, dry, intact, normal color. Absent: rash Course Vital Signs 09/15/22 09/15/22 09/15/22 08:46 09:37 10:59 Temperature 98 F Pulse Rate 76 64 57 L Respiratory 18 18 18 Rate Blood Pressure 115/80 127/77 128/76 O2 Sat by Pulse 100 96 98 Oximetry 09/15/22 12:03 Temperature Pulse Rate 60 Respiratory 20 Rate Blood Pressure 127/80 O2 Sat by Pulse 96 Oximetry Medical Decision Making - Medical Decision Making Was pt. sent in by a medical professional or institution ([employer], [employer], urgent care, hospital, or detention...) When possible be specific @ -Urgent care Did you speak to anyone other than the patient for history (EMS, parent, family, police, friend...)? What history was obtained from this source @ -No Did you review nursing and triage notes (agree or disagree)? Why? @ -I reviewed and agree with nursing and triage notes Were old charts reviewed (outside hosp., previous admission, EMS record, old EKG, old radiological studies, urgent care reports/EKG's, detention records)? Report findings @ -No old charts were reviewed Differential Diagnosis (chest pain, altered mental status, abdominal pain women, abdominal pain men, vaginal bleeding, weakness, fever, dyspnea, syncope, headache, dizziness, GI bleed, back pain, seizure, CVA, palpatations, mental health, musculoskeletal)? @ -nDifferential Abdominal Pain Men: Appendicitis, cholecystitis, diverticulosis, ischemic bowel, pancreatitis, hepatitis, UTI, gastroenteritis, AAA, incarcerated hernia, bowel obstruction, constipation, inflammatory bowel, hepatitis, peptic ulcer disease, splenic infarction, perforated viscus, testicular torsion, this is not meant to be an all-inclusive listlicable EKG interpreted by me (3pts min.). @ -As above X-rays interpreted by me (1pt min.). @ -None done CT interpreted by me (1pt min.). @ -CT abdomen shows no acute process U/S interpreted by me (1pt. min.). @ -None done What testing was considered but not performed or refused? (CT, X-rays, U/S, labs)? Why? @ -None What meds were considered but not given or refused? Why? @ -None Did you discuss the management of the patient with other professionals (professionals i.e. [employer] [facility], [employer], lab, RT, psych nurse, social work professor, waste elimination, teacher, surveillance dual rate officer, pillowcase maker)? Give summary @ -No Was smoking cessation discussed for >3mins.? @ -No Was critical care preformed (if so, how long)? @ -No Were there social determinants of health that impacted care today? How? (Homelessness, low income, unemployed, alcoholism, drug addiction, transportation, low edu. Level, literacy, decrease access to med. care, half-way, rehab)? @ -No Was there de-escalation of care discussed even if they declined (Discuss DNR or withdrawal of care, Hospice)? DNR status @ -No What co-morbidities impacted this encounter? (DM, HTN, Smoking, COPD, CAD, Cancer, CVA, ARF, Chemo, Hep., AIDS, mental health diagnosis, sleep apnea, morbid obesity)? @ -None Was patient admitted / discharged? Hospital course, mention meds given and rout e, prescriptions, significant lab abnormalities, going to OR and other pertinent info. @ -Discharge patient's laboratory studies, EKG and CT shows no acute abnormality. This may be related to reflux, possible underlying gastritis undiagnosed patient we discharged on omeprazole follow-up with GI. Return parameters discussed Undiagnosed new problem with uncertain prognosis? @ -No Drug Therapy requiring intensive monitoring for toxicity (Heparin, Nitro, Insulin, Cardizem)? @ -No Were any procedures done? @ -No Diagnosis/symptom? @ -Abdominal pain Acute, or Chronic, or Acute on Chronic? @ -Acute Uncomplicated (without systemic symptoms) or Complicated (systemic symptoms)? @ -Uncomplicated Side effects of treatment? @ -No Exacerbation, Progression, or Severe Exacerbation? @ -No Poses a threat to life or bodily function? How? (Chest pain, [place], [place], pneumonia, PE, COPD, DKA, ARF, appy, cholecystitis, CVA, Diverticulitis, Homicidal, Suicidal, threat to staff... and all critical care pts) @ -No - Lab Data Result diagrams: 09/15/22 09:29 09/15/22 09:29 Lab Results 09/15/22 09/15/22 09/15/22 Range/Units 09:29 09:29 09:29 WBC 6.1 (3.8-10.6) k/uL RBC 5.10 (4.30-5.90) m/uL Hgb 15.9 (13.0-17.5) gm/dL Hct 46.0 (39.0-53.0) % MCV 90.1 (80.0-100.0) fL MCH 31.2 (25.0-35.0) pg MCHC 34.6 (31.0-37.0) g/dL RDW 12.9 (11.5-15.5) % Plt Count 267 (150-450) k/uL MPV 6.9 Neutrophils % 73 % Lymphocytes % 16 % Monocytes % 6 % Eosinophils % 3 % Basophils % 1 % Neutrophils # 4.4 (1.3-7.7) k/uL Lymphocytes # 0.9 L (1.0-4.8) k/uL Monocytes # 0.4 (0-1.0) k/uL Eosinophils # 0.2 (0-0.7) k/uL Basophils # 0.1 (0-0.2) k/uL Sodium 135 L (137-145) mmol/L Potassium 3.6 (3.5-5.1) mmol/L Chloride 99 (98-107) mmol/L Carbon Dioxide 28 (22-30) mmol/L Anion Gap 8 mmol/L BUN 15 (9-20) mg/dL Creatinine 0.82 (0.66-1.25) mg/dL Est GFR (CKD-EPI)AfAm >90 (>60 ml/min/1.73 sqM) Est GFR (CKD-EPI)NonAf >90 (>60 ml/min/1.73 sqM) Glucose 114 H (74-99) mg/dL Plasma Lactic Acid Ozzie 1.0 (0.7-2.0) mmol/L Calcium 9.7 (8.4-10.2) mg/dL Total Bilirubin 1.3 (0.2-1.3) mg/dL AST 38 (17-59) U/L ALT 39 (4-49) U/L Alkaline Phosphatase 67 (38-126) U/L Troponin I (0.000-0.034) ng/mL Total Protein 6.8 (6.3-8.2) g/dL Albumin 4.3 (3.5-5.0) g/dL Amylase 33 (30-110) U/L Lipase 55 (23-300) U/L 09/15/22 Range/Units 09:29 WBC (3.8-10.6) k/uL RBC (4.30-5.90) m/uL Hgb (13.0-17.5) gm/dL Hct (39.0-53.0) % MCV (80.0-100.0) fL MCH (25.0-35.0) pg MCHC (31.0-37.0) g/dL RDW (11.5-15.5) % Plt Count (150-450) k/uL MPV Neutrophils % % Lymphocytes % % Monocytes % % Eosinophils % % Basophils % % Neutrophils # (1.3-7.7) k/uL Lymphocytes # (1.0-4.8) k/uL Monocytes # (0-1.0) k/uL Eosinophils # (0-0.7) k/uL Basophils # (0-0.2) k/uL Sodium (137-145) mmol/L Potassium (3.5-5.1) mmol/L Chloride (98-107) mmol/L Carbon Dioxide (22-30) mmol/L Anion Gap mmol/L BUN (9-20) mg/dL Creatinine (0.66-1.25) mg/dL Est GFR (CKD-EPI)AfAm (>60 ml/min/1.73 sqM) Est GFR (CKD-EPI)NonAf (>60 ml/min/1.73 sqM) Glucose (74-99) mg/dL Plasma Lactic Acid Ozzie (0.7-2.0) mmol/L Calcium (8.4-10.2) mg/dL Total Bilirubin (0.2-1.3) mg/dL AST (17-59) U/L ALT (4-49) U/L Alkaline Phosphatase (38-126) U/L Troponin I <0.012 (0.000-0.034) ng/mL Total Protein (6.3-8.2) g/dL Albumin (3.5-5.0) g/dL Amylase (30-110) U/L Lipase (23-300) U/L - EKG Data -: EKG Interpreted by Me EKG Comments: EKG performed at 9:46 sinus bradycardia rate of 59 CO 137 QRS 96 QT/QTC 418/417 Disposition Clinical Impression: Abdominal pain Disposition: HOME SELF-CARE Condition: Stable Instructions (If sedation given, give patient instructions): Abdominal Pain (ED) Additional Instructions: Please return to the Emergency Department if symptoms worsen or any other concerns. Prescriptions: Omeprazole [PriLOSEC] 40 mg PO DAILY #14 cap Is patient prescribed a controlled substance at d/c from ED?: No Referrals: Ricky Diane MD [Primary Care Provider] - 1-2 days Clare Parson MD [STAFF PHYSICIAN] - 1-2 days Time of Disposition: 12:50
[2022-09-15 09:44] LABS: Basophils # (A) 0.1 k/uL (0-0.2); Basophils % (A) 1 %; Eosinophils # (A) 0.2 k/uL (0-0.7); Eosinophils % (A) 3 %; HGB 15.9 gm/dL (13.0-17.5); Lymphocytes # (A) 0.9 k/uL (1.0-4.8); Lymphocytes % (A) 16 %; MCH 31.2 pg (25.0-35.0); MCHC 34.6 g/dL (31.0-37.0); MCV 90.1 fL (80.0-100.0); Mean Platelet Volume 6.9; Monocytes # (A) 0.4 k/uL (0-1.0); Monocytes % (A) 6 %; Neutrophils # (A) 4.4 k/uL (1.3-7.7); Neutrophils % (A) 73 %; Platelet Count 267 k/uL (150-450); RDW 12.9 % (11.5-15.5); WBC 6.1 k/uL (3.8-10.6)
[2022-09-15 10:02] LABS: ALT 39 U/L (4-49); AST 38 U/L (17-59); African American GFR (CKD) >90 (>60 ml/min/1.73 sqM); Albumin 4.3 g/dL (3.5-5.0); Alkaline Phosphatase 67 U/L (38-126); Amylase 33 U/L (30-110); Anion Gap 8 mmol/L; Blood Urea Nitrogen 15 mg/dL (9-20); Calcium 9.7 mg/dL (8.4-10.2); Carbon Dioxide 28 mmol/L (22-30); Chloride 99 mmol/L (98-107); Glucose 114 mg/dL (74-99); Lipase 55 U/L (23-300); Non-African American GFR(CKD) >90 (>60 ml/min/1.73 sqM); Potassium 3.6 mmol/L (3.5-5.1); Sodium 135 mmol/L (137-145); Total Bilirubin 1.3 mg/dL (0.2-1.3); Total Protein 6.8 g/dL (6.3-8.2)
[2022-09-15] MEDS ORDERED: HYDROmorphone 0.5 MG/0.5 ML SYRINGE IVP STA (10:26)
[2022-09-15] MEDS ORDERED: ONDANSETRON 4 MG/2 ML VIAL IVP STA (10:26)
[2022-09-15 12:04] VITALS: PULSE 60
--- NOTE | 2022-09-15 12:43 | CT ---
EXAMINATION TYPE: CT abdomen pelvis w con DATE OF EXAM: 09/15/2022 COMPARISON: None. HISTORY: Upper abdominal pain, just below sternum CT DLP: 2247 mGycm, Automated Exposure Control for Dose Reduction was Utilized. CONTRAST: CT scan of the abdomen and pelvis is performed with oral and with IV Contrast, patient injected with 100 mL of Isovue 300. FINDINGS: LUNG BASES: Dependent atelectasis. LIVER/GB: No significant abnormality is appreciated. PANCREAS: No significant abnormality is seen. SPLEEN: No significant abnormality is seen. ADRENALS: No significant abnormality is seen. KIDNEYS: Symmetric cortical uptake but no visualized excretion bilaterally. No hydronephrosis is pres ent bilaterally. BOWEL: Slightly suboptimal evaluation without enteric contrast. No suspicious small or large bowel di latation. PROSTATE/SEMINAL VESICLES: No gross abnormality seen. LYMPH NODES: No greater than 1cm abdominal or pelvic lymph nodes are appreciated. A few prominent bu t subcentimeter lymph nodes in the lower abdominal retroperitoneum just before aortic bifurcation are incidentally noted OSSEOUS STRUCTURES: Slight scoliotic curvature. Mild to moderate disc space narrowing and moderate sp urring at left L2-L3 level. Multilevel facet arthropathy in the lower lumbar spine. Postsurgical thapa ge posterior L4-L5 level is present. OTHER: Metallic stimulator device in the subcutaneous tissue overlying the left lower quadrant is pre sent. Tiny fat-containing umbilical hernia. IMPRESSION: No significant acute finding is seen to account for patient's clinical symptoms.
[2022-09-15 13:25] VITALS: BP 126/88; RESP 18; TEMP 98.4
== END 2022-09-15 13:25 | disposition home or self-care (01) ==
LOC: EC 08:41
DX: R10.10 Upper abdominal pain, unspecified (principal); I10 Essential (primary) hypertension; G47.30 Sleep apnea, unspecified; F32.A Depression, unspecified; Z79.899 Other long term (current) drug therapy; Z88.5 Allergy status to narcotic agent; Z88.2 Allergy status to sulfonamides; Z88.0 Allergy status to penicillin; Z88.6 Allergy status to analgesic agent; Z88.8 Allergy status to other drugs, medicaments and biological substances; Z88.1 Allergy status to other antibiotic agents
CPT/HCPCS: 36415; 93005; 80053; 82150; 83605; 83690; 84484; 85025; 74177; 99285; 96374; 96375 ×2; 96361 ×2; J2405; J1885; J1170; Q9967

== ENCOUNTER 2022-09-22 02:32 | Emergency (ER) | payer MEDICARE, OTHER ==
[2022-09-22 02:37] VITALS: TEMP 97.4
[2022-09-22 06:08] LABS: Basophils % (A) 0 %; Eosinophils # (A) 0.2 k/uL (0-0.7); Eosinophils % (A) 3 %; HCT 44.3 % (39.0-53.0); HGB 16.3 gm/dL (13.0-17.5); Lymphocytes # (A) 0.8 k/uL (1.0-4.8); Lymphocytes % (A) 11 %; MCH 31.9 pg (25.0-35.0); MCHC 36.8 g/dL (31.0-37.0); MCV 86.6 fL (80.0-100.0); Mean Platelet Volume 7.2; Monocytes # (A) 0.4 k/uL (0-1.0); Monocytes % (A) 5 %; Neutrophils % (A) 80 %; Platelet Count 211 k/uL (150-450); RBC 5.11 m/uL (4.30-5.90); RDW 12.6 % (11.5-15.5); WBC 7.5 k/uL (3.8-10.6)
[2022-09-22 06:18] LABS: ALT 30 U/L (4-49); AST 34 U/L (17-59); African American GFR (CKD) >90 (>60 ml/min/1.73 sqM); Albumin 4.4 g/dL (3.5-5.0); Alkaline Phosphatase 101 U/L (38-126); Amylase 33 U/L (30-110); Anion Gap 8 mmol/L; Blood Urea Nitrogen 11 mg/dL (9-20); Calcium 9.2 mg/dL (8.4-10.2); Carbon Dioxide 27 mmol/L (22-30); Chloride 93 mmol/L (98-107); Glucose 123 mg/dL (74-99); Lipase 54 U/L (23-300); Non-African American GFR(CKD) >90 (>60 ml/min/1.73 sqM); Sodium 128 mmol/L (137-145); Total Bilirubin 1.6 mg/dL (0.2-1.3)
[2022-09-22] MEDS ORDERED: SODIUM CHLORIDE 0.9% 500 ML 500 ML IV STA (06:40)
[2022-09-22] MEDS ORDERED: POTASSIUM CHLORIDE ER 20 MEQ TAB.ER PO STA (06:40)
[2022-09-22] MEDS ORDERED: DICYCLOMINE 20 MG TAB PO STA (06:57)
[2022-09-22] MEDS ORDERED: HYDROmorphone 1 MG/ML 1 ML SYRINGE IVP STA (07:18)
[2022-09-22 08:35] VITALS: BP 126/98; PULSE 76; RESP 18
--- NOTE | 2022-10-27 07:03 | ED ---
Abdominal Pain HPI - General Chief Complaint: Abdominal Pain Stated Complaint: Abd Pain Time Seen by Provider: 09/22/22 04:45 Source: patient Mode of arrival: ambulatory Limitations: no limitations - History of Present Illness Initial Comments: Patient is a 52-year-old man presenting to have evaluation of abdominal pain that moves around the abdomen. He states it's crampy, sharp, somewhat intermittent. He has not noted worsening or relieving factors. No fever or chills. Did have loose bowel movement. No bloody or tarry stools MD Complaint: abdominal pain -: hour(s) Location: periumbilical Radiation: none Severity: moderate Quality: cramping Consistency: colicky Improves With: nothing Worsens With: nothing Associated Symptoms: nausea - Related Data Home Medications Medication Instructions Recorded Confirmed Chlorthalidone 50 mg PO DAILY 09/29/19 10/21/22 Levothyroxine Sodium 25 mcg PO QAM 09/29/19 10/21/22 Vortioxetine Hydrobromide 20 mg PO QAM 09/29/19 10/21/22 [Trintellix] ARIPiprazole [Abilify] 2 mg PO DAILY 09/15/22 10/21/22 Losartan [Cozaar] 50 mg PO DAILY 09/15/22 10/21/22 busPIRone HCl [Buspar] 10 mg PO BID 09/15/22 10/21/22 polyethylene glycoL 3350 [Miralax] 17 gm PO DAILY PRN 09/15/22 10/21/22 Gabapentin [Neurontin] 400 mg PO TID 10/14/22 10/21/22 Omeprazole 40 mg PO DAILY 10/14/22 10/21/22 Allergies Allergy/AdvReac Type Severity Reaction Status Date / Time codeine Allergy Rash/Hives Verified 10/21/22 07:33 Sulfa (Sulfonamide Allergy Anaphylaxis Verified 10/21/22 07:33 Antibiotics) vancomycin Allergy Rash/Hives Verified 10/21/22 07:33 cephalexin AdvReac Unknown Nausea & Verified 10/21/22 07:33 Vomiting Penicillins AdvReac Nausea & Verified 10/21/22 07:33 Vomiting Review of Systems ROS Statement: Those systems with pertinent positive or pertinent negative responses have been documented in the HPI. ROS Other: All systems not noted in ROS Statement are negative. Constitutional: Denies: fever, chills, weakness Respiratory: Denies: cough, dyspnea Cardiovascular: Denies: chest pain, palpitations Gastrointestinal: Reports: abdominal pain, nausea, diarrhea. Denies: constipa tion, melena, hematochezia Genitourinary: Denies: dysuria, frequency, hematuria, testicular pain, testicular mass Musculoskeletal: Denies: back pain Skin: Denies: rash Neurological: Denies: headache, weakness Past Medical History Past Medical History: Hypertension, Sleep Apnea/CPAP/BIPAP Additional Past Medical History / Comment(s): brain cancer, KIDNEY STONES, multiple sclerosis History of Any Multi-Drug Resistant Organisms: None Reported Past Surgical History: Hernia Repair, Orthopedic Surgery Additional Past Surgical History / Comment(s): brain surgery, , RT ARM ULNAR NERVE SX, X25 SHUNT PLACEMENT/REVISON SX, UMBILICAL HERNIA AND HIATL HERNIA, KATHERINE KNEE ARTHROSCOPIES,NECK FUSION HAS METAL PLATE C-5,C-6 Past Anesthesia/Blood Transfusion Reactions: No Reported Reaction Additional Past Anesthesia/Blood Transfusion Reaction / Comment(s): no hx blood transfusion Past Psychological History: Depression Smoking Status: Never smoker Past Alcohol Use History: Daily Past Drug Use History: None Reported - Past Family History Mother Family Medical History: No Reported History General Exam Limitations: no limitations General appearance: alert, in no apparent distress Head exam: Present: atraumatic, normocephalic Eye exam: Present: normal appearance. Absent: scleral icterus, conjunctival injection ENT exam: Present: normal oropharynx Neck exam: Present: normal inspection Respiratory exam: Present: normal lung sounds bilaterally. Absent: respiratory distress, wheezes, rales, rhonchi, stridor Cardiovascular Exam: Present: regular rate, normal rhythm, normal heart sounds. Absent: systolic murmur, diastolic murmur, rubs, gallop GI/Abdominal exam: Present: soft. Absent: distended, tenderness, guarding, rebound, rigid, mass, pulsatile mass, hernia Extremities exam: Present: normal inspection, normal capillary refill. Absent: pedal edema, calf tenderness Back exam: Present: normal inspection. Absent: CVA tenderness (R), CVA tenderness (L) Neurological exam: Present: alert Skin exam: Present: warm, dry, intact, normal color. Absent: rash Course Vital Signs 09/22/22 09/22/22 02:34 08:05 Temperature 97.4 F L Pulse Rate 104 H 76 Respiratory 16 18 Rate Blood Pressure 132/88 126/98 O2 Sat by Pulse 95 97 Oximetry Medical Decision Making - Medical Decision Making This patient is 52-year-old man with abdominal pain. The exam not indicating acute surgical condition. The patient's labs reveal some mild hyponatremia, mild hypokalemia. The patient does feel better following fluids and medication and would like to go home. We discussed appropriate further care and follow-up as well as return parameters. Was pt. sent in by a medical professional or institution (, PA, FUNCTIONAL MANAGER, urgent care, hospital, or intermediate...) When possible be specific @ -[No] Did you speak to anyone other than the patient for history (EMS, parent, family, police, friend...)? What history was obtained from this source @ -[No] Did you review nursing and triage notes (agree or disagree)? Why? @ -[I reviewed and agree with nursing and triage notes] Were old charts reviewed (outside hosp., previous admission, EMS record, old EKG, old radiological studies, urgent care reports/EKG's, intermediate records)? Report findings @ -[No old charts were reviewed] Differential Diagnosis (chest pain, altered mental status, abdominal pain women, abdominal pain men, vaginal bleeding, weakness, fever, dyspnea, syncope, hea dache, dizziness, GI bleed, back pain, seizure, CVA, palpatations, mental health, musculoskeletal)? @ -[Differential Abdominal Pain Men: Appendicitis, cholecystitis, diverticulosis, ischemic bowel, pancreatitis, hepatitis, UTI, gastroenteritis, AAA, incarcerated hernia, bowel obstruction, constipation, inflammatory bowel, hepatitis, peptic ulcer disease, splenic infarction, perforated viscus, testicular torsion, this is not meant to be an all-inclusive list EKG interpreted by me (3pts min.). @ -[ X-rays interpreted by me (1pt min.). @ -[None done] CT interpreted by me (1pt min.). @ -[None done] U/S interpreted by me (1pt. min.). @ -[None done] What testing was considered but not performed or refused? (CT, X-rays, U/S, labs)? Why? @ -[None] What meds were considered but not given or refused? Why? @ -[None] Did you discuss the management of the patient with other professionals (professionals i.e. , PA, FUNCTIONAL MANAGER, lab, RT, psych nurse, social services assistant, housing assistant property manager, teacher, public information officer, nurse outreach case manager)? Give summary @ -[No] Was smoking cessation discussed for >3mins.? @ -[No] Was critical care preformed (if so, how long)? @ -[No] Were there social determinants of health that impacted care today? How? (Homelessness, low income, unemployed, alcoholism, drug addiction, transportation, low edu. Level, literacy, decrease access to med. care, group home, rehab)? @ -[No] Was there de-escalation of care discussed even if they declined (Discuss DNR or withdrawal of care, Hospice)? DNR status @ -[No] What co-morbidities impacted this encounter? (DM, HTN, Smoking, COPD, CAD, Cancer, CVA, ARF, Chemo, Hep., AIDS, mental health diagnosis, sleep apnea, morbid obesity)? @ -[None] Was patient admitted / discharged? Hospital course, mention meds given and route, prescriptions, significant lab abnormalities, going to OR and other pertinent info. @ -[As above, discharged with strict return parameters Undiagnosed new problem with uncertain prognosis? @ -[No] Drug Therapy requiring intensive monitoring for toxicity (Heparin, Nitro, I nsulin, Cardizem)? @ -[No] Were any procedures done? @ -[No] Diagnosis/symptom? @ -[Acute abdominal pain Acute hyponatremia Acute hypokalemia Acute, or Chronic, or Acute on Chronic? @ -[default] Uncomplicated (without systemic symptoms) or Complicated (systemic symptoms)? @ -[Uncomplicated Side effects of treatment? @ -[No] Exacerbation, Progression, or Severe Exacerbation? @ -[No] Poses a threat to life or bodily function? How? (Chest pain, [place], [place], pneumonia, PE, COPD, DKA, ARF, appy, cholecystitis, CVA, Diverticulitis, Homicidal, Suicidal, threat to staff... and all critical care pts) @ -[No] - Lab Data Result diagrams: 09/22/22 05:00 09/22/22 05:00 Lab Results 09/22/22 09/22/22 09/22/22 Range/Units 05:00 05:00 05:00 WBC 7.5 (3.8-10.6) k/uL RBC 5.11 (4.30-5.90) m/uL Hgb 16.3 (13.0-17.5) gm/dL Hct 44.3 (39.0-53.0) % MCV 86.6 (80.0-100.0) fL MCH 31.9 (25.0-35.0) pg MCHC 36.8 (31.0-37.0) g/dL RDW 12.6 (11.5-15.5) % Plt Count 211 (150-450) k/uL MPV 7.2 Neutrophils % 80 % Lymphocytes % 11 % Monocytes % 5 % Eosinophils % 3 % Basophils % 0 % Neutrophils # 6.0 (1.3-7.7) k/uL Lymphocytes # 0.8 L (1.0-4.8) k/uL Monocytes # 0.4 (0-1.0) k/uL Eosinophils # 0.2 (0-0.7) k/uL Basophils # 0.0 (0-0.2) k/uL Sodium 128 L (137-145) mmol/L Potassium 3.0 L (3.5-5.1) mmol/L Chloride 93 L (98-107) mmol/L Carbon Dioxide 27 (22-30) mmol/L Anion Gap 8 mmol/L BUN 11 (9-20) mg/dL Creatinine 0.68 (0.66-1.25) mg/dL Est GFR (CKD-EPI)AfAm >90 (>60 ml/min/1.73 sqM) Est GFR (CKD-EPI)NonAf >90 (>60 ml/min/1.73 sqM) Glucose 123 H (74-99) mg/dL Plasma Lactic Acid Ozzie 1.0 (0.7-2.0) mmol/L Calcium 9.2 (8.4-10.2) mg/dL Total Bilirubin 1.6 H (0.2-1.3) mg/dL AST 34 (17-59) U/L ALT 30 (4-49) U/L Alkaline Phosphatase 101 (38-126) U/L Troponin I (0.000-0.034) ng/mL Total Protein 7.0 (6.3-8.2) g/dL Albumin 4.4 (3.5-5.0) g/dL Amylase 33 (30-110) U/L Lipase 54 (23-300) U/L 09/22/22 Range/Units 05:00 WBC (3.8-10.6) k/uL RBC (4.30-5.90) m/uL Hgb (13.0-17.5) gm/dL Hct (39.0-53.0) % MCV (80.0-100.0) fL MCH (25.0-35.0) pg MCHC (31.0-37.0) g/dL RDW (11.5-15.5) % Plt Count (150-450) k/uL MPV Neutrophils % % Lymphocytes % % Monocytes % % Eosinophils % % Basophils % % Neutrophils # (1.3-7.7) k/uL Lymphocytes # (1.0-4.8) k/uL Monocytes # (0-1.0) k/uL Eosinophils # (0-0.7) k/uL Basophils # (0-0.2) k/uL Sodium (137-145) mmol/L Potassium (3.5-5.1) mmol/L Chloride (98-107) mmol/L Carbon Dioxide (22-30) mmol/L Anion Gap mmol/L BUN (9-20) mg/dL Creatinine (0.66-1.25) mg/dL Est GFR (CKD-EPI)AfAm (>60 ml/min/1.73 sqM) Est GFR (CKD-EPI)NonAf (>60 ml/min/1.73 sqM) Glucose (74-99) mg/dL Plasma Lactic Acid Ozzie (0.7-2.0) mmol/L Calcium (8.4-10.2) mg/dL Total Bilirubin (0.2-1.3) mg/dL AST (17-59) U/L ALT (4-49) U/L Alkaline Phosphatase (38-126) U/L Troponin I <0.012 (0.000-0.034) ng/mL Total Protein (6.3-8.2) g/dL Albumin (3.5-5.0) g/dL Amylase (30-110) U/L Lipase (23-300) U/L Disposition Clinical Impression: Acute abdomen, Hyponatremia, Hypokalemia Disposition: HOME SELF-CARE Condition: Good Is patient prescribed a controlled substance at d/c from ED?: No Referrals: Ricky Diane MD [Primary Care Provider] - 1-2 days
== END 2022-09-22 08:10 | disposition home or self-care (01) ==
LOC: EC 02:32
DX: E87.6 Hypokalemia (principal); E87.1 Hypo-osmolality and hyponatremia; R10.33 Periumbilical pain; I10 Essential (primary) hypertension; F32.A Depression, unspecified; Z88.0 Allergy status to penicillin; Z88.1 Allergy status to other antibiotic agents; Z88.2 Allergy status to sulfonamides; Z88.5 Allergy status to narcotic agent; Z79.899 Other long term (current) drug therapy
CPT/HCPCS: 36415; 80053; 82150; 83605; 83690; 84484; 85025; 99284; 96374; J1170

== ENCOUNTER 2022-10-21 07:13 | Day surgery (SDC) | payer MEDICARE, OTHER ==
[2022-10-14 13:49] VITALS: BMI 33.2
[2022-10-21] MEDS ORDERED: LACTATED RINGERS 1,000 ML IV SCH (07:24)
[2022-10-21] MEDS ORDERED: LIDOCAINE 1% (10MG/ML) FOR IV START INTRADERMA PRN (07:24)
[2022-10-21 07:31] VITALS: TEMP 97
[2022-10-21] MEDS ORDERED: LIDOCAINE 2% INJ 20 MG/ML (2 ML VIAL) ONE (08:02)
[2022-10-21] MEDS ORDERED: PROPOFOL 10 MG/ML 20 ML VIAL IV ONE (08:02)
--- NOTE | 2022-10-21 08:25 | P.PCN ---
Date of Procedure: 10/21/22 Procedure(s) Performed: Brief history: Patient is a pleasant 52-year-old white male scheduled for an elective upper endoscopy as well as colonoscopy as a part of evaluation of epigastric pain and change in bowel habits for the last 1 month duration Procedure performed: Esophagogastroduodenoscopy with biopsy Colonoscopy Preoperative diagnosis: Epigastric pain Change in bowel habits Anesthesia: MAC Procedure: After informed consent was obtained from the patient was brought into the endoscopy unit and IV sedation was administered by anesthesia under continuous monitoring. Initially upper endoscopy was done. The Olympus GF 160 video endoscope was inserted inserted into the mouth and esophagus intubated without any difficulty and was gradually advanced into the stomach and duodenum and carefully examined. The bulb and second part of the duodenum appeared normal. Abscesses were done from the duodenum to rule out celiac disease. The scope was then withdrawn into the stomach adequately insufflated with air and upon careful examination the antrum had patchy areas of erythema which was biopsied. Mucosa of the body, cardia and fundus appeared normal. The scope was then withdrawn into the esophagus. The GE junction was located at 40 cm to the incisors. It appeared regular with no erythema erosions or ulcerations. Rest of the esophagus appeared normal. Biopsies were done from the distal esophagus Patient tolerated the procedure well. At this time the patient continued to remain sedation. Initial digital rectal examination was normal. Olympus CF 160 video colonoscope was then inserted into the rectum and gradually advanced to the cecum without any difficulty. Careful examination was performed as the scope was gradually being withdrawn. The prep was excellent. The cecum, ascending colon, transverse colon, descending colon, sigmoid colon and rectum appeared normal. Retroflexion was performed in the rectum and no lesions were noted. Patient tolerated the procedure well. Impression: 1. Upper endoscopy revealed mild antral gastritis but no evidence of esoph agitis or peptic ulcer disease 2. Colonoscopy was within normal limits with no evidence of colorectal neoplasia Recommendations: Findings of this examination were discussed with the patient as well as his family. He was advised to follow with the biopsies. Continue current medications and follow antireflux measures. He was advised to have a eat screening colonoscopy in 10 years.
[2022-10-21 08:52] VITALS: BP 136/71; PULSE 84; RESP 15
== END 2022-10-21 09:04 | disposition home or self-care (01) ==
LOC: ORWHC2ENDO 07:13
PROVIDERS: ATTEND Internal Medicine Gastroenterology
DX: K29.50 Unspecified chronic gastritis without bleeding (principal); I10 Essential (primary) hypertension; E07.9 Disorder of thyroid, unspecified; F32.A Depression, unspecified; Z88.2 Allergy status to sulfonamides; Z79.899 Other long term (current) drug therapy
CPT/HCPCS: 88305; 45378; 43239; J2704; J2001

== ENCOUNTER → 2022-10-27 | Outpatient (CLI) | payer MEDICARE, OTHER ==
--- NOTE | 2022-10-27 14:32 | P.PN ---
Progress Note - Text Progress Note Date: 10/27/22 This is a 51-year-old female patient who is coming in for an annual checkup regarding his obstructive sleep apnea. The patient is known to have moderately severe disease with AHI of 2 6. At the same time, the patient has multiple other comorbidities including multiple sclerosis, chronic anxiety/depression and hypertension and chronic back pain and more recently, the patient was diagnosed having shingles and he was treated accordingly. He has hypothyroidism. Since his last evaluation, the patient has lost weight. He is to weigh 327 and his weight is currently down to 288. Treatment has been very successful and the patient has been maintained on a functional CPAP unit at a pressure of 12 cm of water. Based on his 30 day compliancy, the patient has been utilizing his machine more than 4 hours 100% of the time. His been averaging around 7.7 hours of CPAP use per night and his leak is in order of 17 L/m and his AHI is down to 2.0. He has no major hypersomnia or sleepiness during the day. The treatment remained successful and the patient is committed to long-term treatments. He is wondering whether he is able to, the CPAP at the later stage if he continues to lose weight. BP is 132/86 with a pulse of 92 and the respiration of 18 and the temperature is 98.4 with a pulse ox of 96% on room air oxygen Weight is 288 The patient appeared well nourished and normally developed. Vital signs as documented. Head exam is unremarkable. No scleral icterus or corneal arcus noted . Neck is without jugular venous distension, thyromegaly, or carotid bruits. Carotid upstrokes are brisk bilaterally. Lungs are clear to auscultation and percussion. Cardiac exam reveals the PMI to be normally sized and situated. Rhythm is regular. First and second heart sounds normal. No murmurs, rubs or gallops. Abdominal exam reveals normal bowel sounds, no masses, no organomegaly and no aortic enlargement. Extremities are nonedematous and both femoral and pedal pulses are normal.Examination of the skin revealed no evidence of significant rashes, suspicious appearing nevi or other concerning lesions.Neurologically, the patient is awake and alert and the patient does not have any focal neurological deficit. Cranial nerves are essentially intact. The patient has muscle atrophy related to multiple sclerosis. Assessment Obstructive sleep apnea moderately severe with an AHI of 26 and the patient continues to be on CPAP therapy at a pressure of 12 cm of water. Hypersomnia, recovered Obesity with a BMI of 35.9 and the patient has lost considerable amount of weight since his last evaluation Multiple sclerosis Shingles Hypertension Hypothyroidism Hyperlipidemia Plan Encourage further weight loss. I think is reasonable to switch this patient on APAP mode pressures of 5/12 cm of water and assess the patient's P 95th percentile pressure. If the pressure comes up to be quite low in the next 6 months, may consider giving the patient home sleep study to evaluate ongoing presence of sleep apnea. He is using the CPAP machine. His equipment will be refilled and the patient is utilizing dreamware nasal mask small size.
== END ==
LOC: 3 N SLEEP 14:02
PROVIDERS: ATTEND Internal Medicine Critical Care Medicine
DX: G47.33 Obstructive sleep apnea (adult) (pediatric) (principal); E66.9 Obesity, unspecified; I10 Essential (primary) hypertension; E03.9 Hypothyroidism, unspecified; E78.5 Hyperlipidemia, unspecified; G35 Multiple sclerosis; B02.9 Zoster without complications; Z68.35 Body mass index [BMI] 35.0-35.9, adult; Z99.89 Dependence on other enabling machines and devices; Z88.2 Allergy status to sulfonamides; Z88.5 Allergy status to narcotic agent; Z88.8 Allergy status to other drugs, medicaments and biological substances; Z88.1 Allergy status to other antibiotic agents; Z79.890 Hormone replacement therapy
CPT/HCPCS: 99212

== ENCOUNTER → 2023-05-04 | Outpatient (CLI) | payer MEDICARE ==
--- NOTE | 2023-05-04 14:12 | P.PN ---
Progress Note - Text Progress Note Date: 05/04/23 This is a 63-year-old male patient with known history of obstructive sleep apnea with moderate to severe disease with an AHI of 26. The patient is coming in for an annual check regarding his JASON. The patient has no specific complaints. He was losing weight and he was down to 288 pounds and since his last evaluation he has gained around 10 pounds. He has history of multiple sclerosis. He has previous history of brain tumor that was resected back in the early s and the patient has chronic anxiety and depression, hypertension and hypothyroidism and hyperlipidemia. The patient continues to use his CPAP. I have him on APAP mode pressures of 5/12 cm of water. He is also using the DreamWear nasal mask medium size. Doing well. No specific complaints. Based on the compliance data collected on his machine, over the past 30 days Patient had 100% compliance utilizing his machine 100% of the time achieving more than 4 hours 29 out of 30 days and is averaging around 6.3 hours of CPAP use per night. The P 95th percentile pressure is at 9.7 with a leak of 12 L/min and his AHI is down to 1.1. He has symptoms of restless leg and is currently taking Requip 0.5 mg 3 times daily. No morning headaches. No major hypersomnia or sleepiness during the day. Treatment remains successful. He has a functioning machine. No morning headaches. No significant hypochondria or sleepiness during the day. Medication includes levothyroxine 25 mcg p.o. daily, Abilify 25 mg p.o. daily, Lipitor 20 mg p.o. daily, aspirin 81 mg p.o. daily, omeprazole 20 mg p.o. daily, trazodone 150 mg at bedtime and BuSpar 10 mg twice a day and losartan 25 mg p.o. daily Drug allergies are to sulfa and codeine and penicillins Review of system 14 point review of system was done and the positive findings were mentioned in history of present illness. Of significance is ongoing fluctuation in his body weight. The patient has gained around 10 pounds. Overall he has lost this amount of weight since 3 years ago. No chest pain. No shortness of breath. No edema lower extremities. He has chronically fatigued and weak and has limitation in exercise capacity due to his multiple sclerosis. BP is 124/84 with a pulse of 88 and respiration of 16 and a temperature of 98.1 his weight is now 98 pounds and his [place] score is at 3 with a pulse ox of 96% on room air oxygen The patient appeared well nourished and normally developed. Vital signs as documented. Head exam is unremarkable. No scleral icterus or corneal arcus noted. Neck is without jugular venous distension, thyromegaly, or carotid bruits. Carotid upstrokes are brisk bilaterally. Lungs are clear to auscultation and percussion. Cardiac exam reveals the PMI to be normally sized and situated. Rhythm is regular. First and second heart sounds normal. No murmurs, rubs or gallops. Abdominal exam reveals normal bowel sounds, no masses, no organomegaly and no aortic enlargement. Extremities are nonedematous and both femoral and pedal pulses are normal. Assessment Symptomatic obstructive sleep apnea, moderate in severity with an AHI of 26 and the patient continues to receive successful APAP therapy pressures of 5/12 cm of water. Compliance data was checked. 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 The refill the supplies including the tubing and the mask and filters. The patient will be kept on the same mask interface and the patient is using a DreamWear nasal medium size mask. Encouraged further weight loss. Treatment is successful. Will continue to follow.
== END ==
LOC: 3 N SLEEP 13:05
PROVIDERS: ATTEND Internal Medicine Critical Care Medicine
DX: G47.33 Obstructive sleep apnea (adult) (pediatric) (principal); G47.10 Hypersomnia, unspecified; F41.9 Anxiety disorder, unspecified; F32.A Depression, unspecified; E03.9 Hypothyroidism, unspecified; E78.5 Hyperlipidemia, unspecified; I10 Essential (primary) hypertension; Z98.890 Other specified postprocedural states; Z88.5 Allergy status to narcotic agent; Z88.2 Allergy status to sulfonamides; Z88.1 Allergy status to other antibiotic agents; Z88.0 Allergy status to penicillin; Z79.890 Hormone replacement therapy; Z79.899 Other long term (current) drug therapy; Z85.841 Personal history of malignant neoplasm of brain
CPT/HCPCS: 99212

== ENCOUNTER → 2023-12-20 | Outpatient (CLI) | payer MEDICARE, OTHER ==
--- NOTE | 2023-12-24 08:05 | MR ---
EXAMINATION TYPE: MR knee RT wo con DATE OF EXAM: 12/20/2023 COMPARISON: Outside right knee x-ray December 15, 2023 HISTORY: right knee pain TECHNIQUE: Multiplanar, multisequence images of the knee is performed without IV contrast. FINDINGS: MEDIAL MENISCUS: Anterior and posterior horns are intact without tear. LATERAL MENISCUS: Anterior and posterior horns are intact without tear. CRUCIATE LIGAMENTS: The anterior and posterior cruciate ligaments are intact and unremarkable. COLLATERAL LIGAMENTS: The medial collateral ligament and lateral collateral ligament complex are inta ct and unremarkable. EXTENSOR MECHANISM: Visualized quadriceps and patellar tendons are intact. EFFUSION: Small size suprapatellar joint effusion. POPLITEAL CYST: No popliteal/[place] cyst. TRICOMPARTMENT SPACES: Mild tricompartment joint space loss and spurring. CARTILAGE: Tricompartmental articular cartilage is preserved. BONE MARROW SIGNAL: There are areas of elongated diminished T1 and increased T2 signal in the cortex of the distal femoral metadiaphysis and proximal tibial metadiaphysis corresponding to sclerotic area s on corresponding x-ray. OTHER: No additional significant abnormality is appreciated. IMPRESSION: 1. Sclerotic cortical based lesions in the distal femur and proximal tibia suspicious for bone infarc ts. Correlate for possible etiologies including hemoglobinopathies and corticosteroid excess amount p ossible broad differential. 2. Small size joint effusion. 3. Mild tricompartment degenerative changes. 4. No meniscal or ligamentous tear. [facility], , 12/24/2023 8:03 AM
== END | disposition home or self-care (01) ==
LOC: RADMRIMAIN 20:30
PROVIDERS: ATTEND Orthopaedic Surgery
DX: M17.11 Unilateral primary osteoarthritis, right knee (principal)

== ENCOUNTER → 2024-04-07 | Outpatient (CLI) | payer MEDICARE, OTHER ==
[2024-04-07 15:18] LABS: Partial Thromboplastin Time 22.6 sec (22.0-30.0); Prothrombin Time 10.9 sec (10.0-12.5)
--- NOTE | 2024-04-07 15:18 | XR ---
EXAMINATION TYPE: XR chest 2V DATE OF EXAM: 04/07/2024 3:06 PM COMPARISON: Chest radiographs from 05/20/2020 CLINICAL INDICATION: Male, 54 years old with history of PRE SURGICAL; [facility] TECHNIQUE: XR chest 2V Frontal and lateral views of the chest. FINDINGS: Lungs/Pleura: There is no evidence of pleural effusion, focal consolidation, or pneumothorax. Pulmonary vascularity: Unremarkable. Heart/mediastinum: Cardiomediastinal silhouette is unremarkable. Musculoskeletal: No acute osseous pathology. There is fixation hardware in the lower cervical spine. Other findings: None IMPRESSION: No acute cardiopulmonary disease/process. [facility], , 04/07/2024 3:16 PM
[2024-04-07 19:40] LABS: Blood Urea Nitrogen 8.8 mg/dL (9.0-27.0); Calcium 9.1 mg/dL (8.7-10.3); Carbon Dioxide 23.7 mmol/L (21.6-31.8); Chloride 101 mmol/L (96-109); Glucose 94 mg/dL (70-110); Potassium 4.8 mmol/L (3.5-5.5); Sodium 136 mmol/L (135-145)
[2024-04-08 02:10] LABS: Basophils # (A) 0.07 X 10*3/uL (0.00-0.10); Basophils % (A) 0.9 %; Eosinophils # (A) 0.13 X 10*3/uL (0.04-0.35); Eosinophils % (A) 1.7 %; HCT 47.9 % (39.6-50.0); HGB 15.5 g/dL (13.0-17.0); Lymphocytes # (A) 1.03 X 10*3/uL (0.90-5.00); Lymphocytes % (A) 13.2 %; MCH 29.4 pg (27.0-32.0); MCHC 32.4 g/dL (32.0-37.0); MCV 90.7 FL (80.0-97.0); Mean Platelet Volume 10.1 FL (9.5-12.2); Monocytes # (A) 0.51 X 10*3/uL (0.20-1.00); Monocytes % (A) 6.5 %; NRBC Per 100 WBC 0 X 10*3/uL (0.00-0.01); Neutrophils # (A) 6.06 X 10*3/uL (1.80-7.70); Neutrophils % (A) 77.3 %; Platelet Count 251 X 10*3/uL (140-440); RBC 5.28 X 10*6/uL (4.40-5.60); RDW 13.3 % (11.5-14.5); WBC 7.83 X 10*3/uL (4.50-10.00)
== END | disposition home or self-care (01) ==
LOC: LABWHC1 14:04
PROVIDERS: ATTEND Orthopaedic Surgery Orthopaedic Surgery of the Spine
DX: Z01.818 Encounter for other preprocedural examination (principal); M48.02 Spinal stenosis, cervical region; Z22.322 Carrier or suspected carrier of Methicillin resistant Staphylococcus aureus
CPT/HCPCS: 36415; 71046; 80048; 85025; 85610; 85730; 87070

== ENCOUNTER → 2024-04-08 | Outpatient (CLI) | payer MEDICARE, OTHER | END | disposition home or self-care (01) | LOC: LABPAT 08:54 | PROVIDERS: ATTEND Orthopaedic Surgery Orthopaedic Surgery of the Spine | DX: Z01.818 Encounter for other preprocedural examination (principal); M48.02 Spinal stenosis, cervical region | CPT/HCPCS: 86850; 86900; 86901 ==

== ENCOUNTER 2024-04-19 07:14 | Day surgery (SDC) | payer MEDICARE, OTHER ==
[~2024-04-19 07:14] MED LIST changes: -CLINDAMYCIN 900 MG in DEXTROSE 5% IN WATER 50 ML IVPB ONE; -DEXAMETHASONE SOD PHOSPHATE 10 MG/ML 1 ML VIAL IV ONE; -SODIUM CHLORIDE 0.9% IRRIGATIO 1,000 ML IRRIGATION ONE; +fentaNYL (PF) 50 MCG/ML 2 ML AMP IV PRN
[2024-04-19] MEDS: IV FLUID CONTINUATION 1,000 ML IV ONE (08:15)
[2024-04-19] MEDS: LACTATED RINGERS 1,000 ML IV SCH (08:25)
[2024-04-19] MEDS: DEXAMETHASONE SOD PHOSPHATE 4 MG/ML 1 ML VIAL IV ONE (08:25)
[2024-04-19] MEDS: ONDANSETRON 4 MG/2 ML VIAL IVP ONE (08:25)
[2024-04-19] MEDS: SCOPOLAMINE 1 MG/72 HR PATCH TRANSDERM ONE (08:26)
[2024-04-19] MEDS ORDERED: fentaNYL (PF) 50 MCG/ML 2 ML AMP ONE (09:06)
[2024-04-19] MEDS ORDERED: PHENYLEPHRINE-0.9% NACL SYG 1,000 MCG/10 ML SYRINGE ONE (09:06)
[2024-04-19] MEDS ORDERED: NEOSTIGMINE 1 MG/ML 10 ML VIAL ONE (09:06)
[2024-04-19] MEDS ORDERED: MIDAZOLAM 2 MG/2 ML VIAL ONE (09:06)
[2024-04-19] MEDS ORDERED: PROPOFOL 10 MG/ML 20 ML VIAL IV ONE (09:06)
[2024-04-19] MEDS ORDERED: DEXAMETHASONE SOD PHOSPHATE 10 MG/ML 1 ML VIAL ONE (09:06)
[2024-04-19] MEDS ORDERED: ROCURONIUM 10 MG/ML (5 ML VIAL) IV ONE (09:06)
[2024-04-19] MEDS ORDERED: GLYCOPYRROLATE 0.2 MG/ML 2 ML VIAL ONE (09:06)
[2024-04-19] MEDS ORDERED: LIDOCAINE 1% INJ 10MG/ML (20 ML MDV) ONE (09:06)
[2024-04-19] MEDS: THROMBIN (BOVINE) 5,000 UNIT VIAL TOPICAL ONE (09:11)
[2024-04-19] MEDS: ceFAZolin 3 GM in SODIUM CHLORIDE 0.9% 100 ML IVPB PRN (09:11)
[2024-04-19] MEDS: ceFAZolin 1,000 MG in SODIUM CHLORIDE 0.9% IRRIGATIO 1,000 ML IRRIGATION PRN (09:28)
[2024-04-19] MEDS: LIDOCAINE 1%-EPI 1:100,000 20 ML VIAL SQ ONE (09:45)
--- NOTE | 2024-04-19 10:29 | XR ---
EXAMINATION TYPE: XR cervical spine 1V DATE OF EXAM: 04/19/2024 10:22 AM INDICATION: Patient age:Male; 54 years old; Reason for study: Needle Placement; [facility], COMPARISON: Cervical spine radiograph 10/02/2019 TECHNIQUE: The cervical spine was imaged in single lateral projection. FINDINGS/IMPRESSION: The C1-C5 cervical spine is visualized. No acute fracture. Partial visualization of anterior cervical fusion plate from C4 extending inferiorly. Anterior approach needle is identified within the anterio r aspect of the C3-C4 disc space with associated prominent anterior osteophyte. Partial visualization of enteric and endotracheal tubes. [facility], , 04/19/2024 10:26 AM
[2024-04-19] MEDS: LACTATED RINGERS 1,000 ML IV ONE ×2 (11:19→16:20)
[2024-04-19] MEDS ORDERED: HYDROmorphone 1 MG/ML 1 ML SYRINGE IVP PRN (11:21)
[2024-04-19] MEDS ORDERED: ONDANSETRON 4 MG/2 ML VIAL IVP PRN (11:21)
[2024-04-19] MEDS ORDERED: CYCLOBENZAPRINE 10 MG TAB PO PRN (11:21)
[2024-04-19] MEDS ORDERED: BENZOCAINE/MENTHOL LOZENG 1 EACH LOZENGE MUCOUS MEM PRN (11:21)
--- NOTE | 2024-04-19 11:21 | P.OP ---
Date of Procedure: 04/19/24 Preoperative Diagnosis: Cervical stenosis C3-4, degenerative disc disease C3-4, adjacent level degeneration, history of prior fusion C 4-7, bilateral upper extremity radiculopathy Postoperative Diagnosis: Same Anesthesia: GETA Pathology: none sent Condition: stable Disposition: PACU Description of Procedure: BRIEF OPERATIVE NOTE Preoperative Diagnosis:Cervical stenosis C3-4, degenerative disc disease C3-4, adjacent level degeneration, history of prior fusion C 4-7, bilateral upper extremity radiculopathy Postoperative Diagnosis:Cervical stenosis C3-4, degenerative disc disease C3-4, adjacent level degeneration, history of prior fusion C 4-7, bilateral upper extremity radiculopathy Procedure: Anterior cervical decompression with discectomy and fusion C3-4 Placement of interbody stand-alone peek graft with incorporated plate C3-4 Use of allograft bone graft Fluoroscopic guidance Surgeon: Dr. Esposito Plate And Weld Inspector: Bernardo EAGLE who is present throughout the entire the case persistence during positioning, dissection, exposure, visualization, and all crucial elements of the case as well as closure. Anesthesia: General anesthesia Estimated blood loss: Approximately 50 cc Complications: None apparent Components implanted: 2 mm Rico stand-alone anterior cervical peek cage with incorporated plate and 12 mm screws x 2 Disposition: To recovery room in good stable condition. OPERATIVE INDICATIONS The patient has had long-standing issues in their neck and upper extremities. He had done well over the past few years every had been through anterior cervical surgery for his stenosis at C 4 5 C5-6 and C6-7 in the past. He had had good improvement with these and had good recovery. However over the past several months the patient has been having worsening pain in his neck. He has been noticing numbness in his bilateral upper extremities. He was found to have significant adjacent level degeneration at C3-4 with evidence of stenosis at that level which correlated with his neck and upper extremity symptoms. The prior surgical areas had been found to have good stability without recurrent stenosis. The patient has been through conservative treatment. We felt that he could have benefit with surgical intervention at C3-4. We discussed various treatment options including surgery, and the patient wishes to proceed with surgery We discussed the risk, patient's alternatives and benefits of surgery including but not limited to, risk of bleeding risk of infection, risk of need for further surgery, risk of decreased, loss of motion, muscle function, malunion nonunion, hardware failure, nerve damage, paralysis, heart attack, and . OPERATIVE SUMMARY After discussing all the risks, patient alternatives and benefits at length, the patient elected to proceed with surgical intervention, signed informed consent, and presented for their procedure. The patient was seen and examined in the preoperative holding area and the surgical site was marked. The patient was given antibiotics and brought to the operating room. The patient was positioned on the operating room table in a supine position being careful to pad any bony prominences and pressure points. The patient was sedated and intubated by anesthesia in standard fashion. Once the airway and C- spine were stabilized the patient's arms were padded and tucked at her side, with her shoulders gently taped. The head was placed in a donut pad with the neck in good neutral alignment and position. We were careful to maintain the patient's cervical spine and good neutral alignment and position throughout. The patient was prepped and draped in a normal standard fashion. An appropriate timeout and keystone protocol performed. We were able to proceed with the surgery. The local wound area was infiltrated with local anesthetic. An incision was made transversely approximately 2-1/2 cm over the appropriate levels at C3-4 above his prior incision. Dissection was taken down subcutaneously to the level of the platysma which was split in line with its fibers. Dissection was taken with a carotid approach, with the trachea and esophagus medial and the carotid sheath laterally. Dissection was somewhat difficult given his scar tissue and prior surgeries but we were able to dissect down to anterior cervical vertebral bodies to expose the top portion of the plate as well as the C3-4 level and bony spurs. We dissected down to the anterior surface of the vertebral bodies. Intraoperative x-ray was taken which showed a marker at the appropriate level at C3-4. With the appropriate level positively confirmed, we were able to proceed with discectomy at the appropriate levels at C3-4. All of the operative levels were exposed appropriately. I was able to remove the anterior cervical osteophytes. The plate was checked and found to be stable. The wound was copiously irrigated and suctioned dry as had been done periodically throughout the case. At the appropriate level/levels of C3-4, I established an annulotomy with an 11 blade scalpel. A discectomy was performed with a combination of pituitary rongeurs, curettes, a high-speed bur, and Kerrison rongeurs. The posterior longitudinal ligament was taken down as were any posterior osteophytes. This gave good central and bilateral foraminal decompression. There is no evidence of any dural tear or leak. The endplates were prepared with a high-speed bur. With the endplates in good parallel position, I was able to size for the appropriate size interbody graft. The wound was irrigated and suctioned dry. I sized for the appropriate size interbody graft and chose the end stand-alone peek cage which was filled with allograft bone graft and positioned on the insertion device. The graft was prepared and malleted into position. It had good alignment and position with the anterior surface flush with the anterior surface of the vertebral bodies. With the grafts intact, I was able to place the screws cephalad and caudad at C3 and C4 vertebral body. I used the awl to establish a starting hole and then used the guide and the screws which were placed in good alignment good position. The C3 screw was slightly flat but it was noted that it hit did have good position on repositioning into the vertebral body of C3. Both the screws had good purchase and were well-seated and stable. The construct was checked and found to be stable. Intraoperative x-ray was taken which showed good alignment and position of the implants at the appropriate levels of C3-4. There was no evidence of any dural tear or leak. Good hemostasis was maintained. The wound was copiously irrigated and suctioned dry as had been done periodically throughout the case. The platysma was closed with absorbable suture. The subcutaneous tissue was closed. The subcuticular tissue was closed with absorbable suture. The wound was cleaned and dried and dressed appropriately. A soft cervical collar was placed appropriately. The patient was woken up by anesthesia, extubated, transferred back gently to their hospital bed and brought to the recovery room in good stable condition. The patient will be admitted to the hospital for appropriate postoperative care, medical management and monitoring. We will continue to follow them closely about the postoperative course.
--- NOTE | 2024-04-19 11:24 | XR ---
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 TECHNIQUE: The cervical spine was imaged in single lateral projection. FINDINGS/IMPRESSION: The C1-C4 cervical spine is visualized. The shoulder obscures the lower cervical spine. Interval plac ement of anterior disc fusion cage at C3-C4. Appears appropriately positioned. Mild expected preverte bral soft tissue edema. Redemonstration of anterior cervical fusion plate at C4 extending inferiorly. No acute fracture. Appropriate alignment of the visualized cervical spine. No vertebral height loss identified. Partial visualization of enteric and endotracheal tubes. Temperature lead identified. [facility], , 04/19/2024 11:22 AM
--- NOTE | 2024-04-19 11:25 | XR ---
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 TECHNIQUE: The cervical spine was imaged in single lateral projection. FINDINGS/IMPRESSION: The C1-C4 cervical spine is visualized. The shoulder obscures the lower cervical spine. Interval plac ement of anterior disc fusion cage at C3-C4. Appears appropriately positioned. Mild expected preverte bral soft tissue edema and gas identified. Redemonstration of anterior cervical fusion plate at C4 ex tending inferiorly. No acute fracture. Appropriate alignment of the visualized cervical spine. No nikky tebral height loss identified. Partial visualization of enteric and endotracheal tubes. Temperature lead identified. 2. Mild degenerative disc disease changes of the cervical spine. [facility], , 04/19/2024 11:23 AM
[2024-04-19 11:29] VITALS: TEMP 97.4
[2024-04-19] MEDS ORDERED: SODIUM CHLORIDE 0.9% 1,000 ML IV SCH (11:30)
[2024-04-19] MEDS ORDERED: D5-0.45% NACL WITH KCL 20MEQ/L 1,000 ML IV SCH (11:30)
[2024-04-19] MEDS: HYDROcodone/APAP 5-325MG 1 EACH TAB PO PRN (12:43)
[2024-04-19 13:10] VITALS: PULSE 85; RESP 14
[2024-04-19 13:33] VITALS: BP 122/72
[2024-04-19] MEDS: TAMSULOSIN 0.4 MG CAP.ER.24H PO STA (14:32)
[2024-04-19] MEDS ORDERED: ceFAZolin 3 GM in SODIUM CHLORIDE 0.9% 100 ML IVPB SCH (16:00)
[2024-04-20] MEDS ORDERED: SENNOSIDES-DOCUSATE SODIUM 1 EACH TAB PO SCH (09:00)
== END 2024-04-19 17:24 | disposition home or self-care (01) ==
LOC: OR 07:14
PROVIDERS: ATTEND Orthopaedic Surgery Orthopaedic Surgery of the Spine
DX: M50.31 Other cervical disc degeneration, high cervical region (principal); M48.02 Spinal stenosis, cervical region; M25.78 Osteophyte, vertebrae; I10 Essential (primary) hypertension; G47.33 Obstructive sleep apnea (adult) (pediatric); F41.9 Anxiety disorder, unspecified; F32.A Depression, unspecified; F43.10 Post-traumatic stress disorder, unspecified; G35 Multiple sclerosis; M19.90 Unspecified osteoarthritis, unspecified site; K21.9 Gastro-esophageal reflux disease without esophagitis; Z86.73 Personal history of transient ischemic attack (TIA), and cerebral infarction without residual deficits; Z85.841 Personal history of malignant neoplasm of brain; Z88.5 Allergy status to narcotic agent; Z88.2 Allergy status to sulfonamides; Z88.0 Allergy status to penicillin; Z88.1 Allergy status to other antibiotic agents; Z99.89 Dependence on other enabling machines and devices; Z79.899 Other long term (current) drug therapy
CPT/HCPCS: 72020; 22551; 22853; 20930; J1100; J0690 ×2; J2405